=== PATIENT | male | born 1955 | race Caucasian/White ===

== ENCOUNTER → 2016-06-08 | Outpatient (CLI) | payer BC ==
[~2016-06-08] MED LIST: ACET-1138 PO; APIX1TAB3 PO; CLB200 PO; FLEC100T21 PO; HYG/25 PO; LISI40TA PO; METO100T14 PO; METO50TA7 PO; OMEG-54 PO; ONDA8TAB6 PO; OXYSR10 PO; PRVC/20 PO; RXC5 PO; SERT1TAB68 PO; SNK PO; [UNRECOGNIZED DRUG - OTHER] PO; lovaza PO
[2016-06-08 18:17] LABS: BLOOD UREA NITROGEN 15 mg/dl (7-18); BUN/CREATININE RATIO 15.1 (10-20); CALCIUM 8.9 mg/dl (8.5-10.1); CARBON DIOXIDE 27 mmol/L (21-32); CHLORIDE 106 mmol/L (98-107); GLUCOSE 127 mg/dl (70-99); POTASSIUM 3.6 mmol/L (3.5-5.1); SODIUM 142 mmol/L (136-145)
== END | disposition home or self-care (01) ==
LOC: C.LABPBG 15:19
PROVIDERS: ATTEND Internal Medicine Geriatric Medicine
DX: I10 Essential (primary) hypertension (principal)

== ENCOUNTER 2016-09-03 07:27 | Inpatient (IN) | payer BC ==
[~2016-09-03] VITALS: Ht 180.3 cm; Wt 126.2 kg
[2016-09-03] VITALS (9 sets, daily range): BP systolic 109–148; BP diastolic 64–76; PULSE 66–82; TEMP 36.2–37; O2SAT 92–99; Ht 180.3 cm; Wt 126.2 kg
[~2016-09-03 07:27] MED LIST changes: -HYG/25 PO; -METO50TA7 PO; -OMEG-54 PO; -ONDA8TAB6 PO
[2016-09-03] MEDS ORDERED: ONDANSETRON INJ 2 MG/ML 2 ML VIAL IV STA (07:48)
[2016-09-03] MEDS ORDERED: ONDANSETRON INJ 2 MG/ML 2 ML VIAL ONE (07:48)
[2016-09-03] MEDS ORDERED: MoRPHine SULFATE 10 MG/ML CARP/VIAL IV STA (07:48)
[2016-09-03] MEDS ORDERED: OMEG-54 PO (07:49)
[2016-09-03] MEDS ORDERED: HYG/25 PO (07:49)
[2016-09-03] MEDS ORDERED: METO50TA7 PO (07:49)
[2016-09-03] MEDS ORDERED: SODIUM CHLORIDE 0.9% 1000ML 1,000 ML IV STA (07:53)
[2016-09-03] MEDS ORDERED: MoRPHine SULFATE 4 MG/ML 1 ML CARP\\VIAL ONE ×3 (07:59→08:51)
[2016-09-03] MEDS ORDERED: MoRPHine SULFATE 2 MG/ML CARP ONE ×3 (07:59→08:51)
[2016-09-03] MEDS ORDERED: OPTIRAY 320 IV PRN (08:00)
[2016-09-03 08:02] LABS: BASO % 0.2 %; BASO ABS # 0.03 K/uL (0-0.2); COMPLETE YES; EOS % 0.6 %; HEMATOCRIT 44.4 % (42-52); IG% 0.2 %; LYMPH % 14.3 %; LYMPH ABS # 1.94 K/uL (1.2-3.4); MEAN CELL VOLUME 88.4 fL (80-100); MEAN CORPUSCULAR HEMOGLOBIN 31.9 pg (25-34); MEAN PLATELET VOLUME 9.9 fL (7.4-10.4); NEUT % 77.7 %; PLATELET COUNT 218 K/uL (130-400); RED BLOOD COUNT 5.02 M/uL (4.7-6.1); WHITE BLOOD COUNT 13.59 K/uL (4.8-10.8)
--- NOTE | 2016-09-03 08:08 | EMERGENCY ROOM VISIT NOTE ---
History First contact with patient: 07:37 Chief Complaint: ABDOMINAL PAIN Stated Complaint: SEVERE ABD. PAINS Nursing Triage Summary: "severe abd pain" slight discomfort last night worse through night. pt has a hx of sbo, n/v since 229 History of Present Illness The patient is a 61 year old male with history of small bowel obstruction who presents to the Emergency Room with complaints of severe abdominal pain. His abdomen started feeling uncomfortable around 11pm last night but he managed to get some sleep. Around 2:30am the pain was more severe that it woke him up and it has been getting progressively worse since then. It started on the left side of his abdomen and is now generalized. No radiation. He has associated sweating with the pain but no fevers or chills in the days leading up to this. He has associated nausea and vomiting and just vomited while in the ER. He thinks his last BM was yesterday. He has been having more loose stool in the last 2 weeks and is taking more Metamucil to help bulk it up. His abdomen is much more distended today than his usual. He has a history of recurrent small bowel obstruction most recently in June 2015 which resolved in the ER. He has no history of abdominal surgery and he is unsure what is the cause of small bowel obstruction. He had a colonoscopy in 2013 which showed terminal ileal ulcers however biopsies of these showed normal ileal mucosa only. No diverticulosis mentioned on colonoscopy report. Review of Systems See HPI for pertinent positives & negatives. A total of 10 systems reviewed and were otherwise negative. Past Medical/Surgical History Medical Problems: (1) Depression (2) Dyslipidemia (3) Hypertension (4) Leg edema (5) Paroxysmal atrial fibrillation (6) Partial small bowel obstruction (7) PVCs (premature ventricular contractions) (8) Severe obstructive sleep apnea Surgical Problems: (1) History of repair of left rotator cuff (2) History of repair of right rotator cuff (3) History of total left knee replacement Social History Smoking Status: Never Smoker Drug Use: none Marital Status: Housing Status: lives with family Occupation Status: retired Current/Historical Medications Scheduled Acetaminophen (Tylenol Extra Strength), 1,000 MG PO Q8H Apixaban (Eliquis), 5 MG PO BID Chlorthalidone (Hygroton), 25 MG PO DAILY Flecainide (Tambocor), 100 MG PO BID Lisinopril (Zestril), 40 MG PO QPM Wtgni-3-Uuex Ethyl Esters (Oataw-8-Dxuv Ethyl Esters 1 gm), 1 CAP PO DAILY Sertraline Hcl (Zoloft), 100 MG PO HS Allergies Coded Allergies: No Known Allergies (Verified , NONE, 09/03/16) Physical Exam Vital Signs Date Time Temp Pulse Resp B/P (MAP) Pulse Ox O2 Delivery O2 Flow Rate FiO2 09/03/16 09:41 76 15 142/73 99 Nasal Cannula 2.0 09/03/16 09:20 99 Nasal Cannula 2.0 09/03/16 08:51 99 Nasal Cannula 3.0 09/03/16 08:50 95 Room Air 09/03/16 08:36 80 17 151/76 92 Room Air 09/03/16 07:30 36.5 88 24 136/84 97 Room Air Pain Rating (0-10): 10 Physical Exam VITAL SIGNS: were reviewed as above GENERAL: moderate distress from abdominal pain and distension SKIN: Warm dry and pink, no rashes, no lesions HEAD: Normocephalic and atraumatic EYES: extraocular muscles intact, pupils equal OROPHARYNX: non erythematous, clear and dry NECK: Supple, large neck, no adenopathy or meningismus LUNGS: clear to auscultation, no accessory muscle use HEART: Regular rate and rhythm, heart sounds 1+2, no murmurs ABDOMEN: Soft, generalized tenderness all over abdomen, no rebound or guarding, abdominal distended, bowel sounds increased BACK: no CVA tenderness EXTREMITIES: Warm and well perfused, no calf tenderness/swelling, no pedal edema. NEUROLOGICALLY: Awake alert and oriented without overt focal deficit. There is no nystagmus. There is no facial droop. Speech is clear. Vision is grossly normal. MUSCULOSKELETAL: Good muscle tone. No evidence of trauma Medical Decision & Procedures ER Provider Diagnostic Interpretation: CT ABD/PELVIS IV CONTRAST ONLY CLINICAL HISTORY: Severe left-sided abdominal pain. History of small bowel obstruction. COMPARISON STUDY: 07/23/2015 TECHNIQUE: Following the IV administration of 120 mL of Optiray-320, CT scan of the abdomen and pelvis was performed from the lung bases to the proximal femurs. Images are reviewed in the axial, sagittal, and coronal planes. IV contrast was administered without complication. CT DOSE: 1256.37 mGy.cm FINDINGS: Lower chest: There are mild basilar atelectatic changes present. Liver: The contrast-enhanced liver is normal in size, contour, and attenuation. There is no intrahepatic biliary ductal dilatation. The hepatic veins and portal veins are patent. Gallbladder: Unremarkable. Spleen: Normal in size and attenuation. Pancreas: Unremarkable. Adrenal glands: Unremarkable. Kidneys: There is symmetric renal cortical enhancement. The kidneys are normal in size without hydronephrosis. Bowel: There is an indwelling nasogastric tube present. The appendix appears normal. There are dilated proximal and mid small bowel loops. The distal ileum is of normal caliber. The findings are indicative of a small bowel obstruction. There is a right lower quadrant transition. There is no acute diverticulitis. Peritoneum: There is no intraperitoneal free air or abdominal ascites. There are small fat-containing inguinal hernias. Vasculature: The abdominal aorta is normal in course and caliber. Adenopathy: None. Pelvic viscera: The bladder, and pelvic viscera are unremarkable. Skeletal structures: No destructive osseous lesions are seen. IMPRESSION: 1. Small bowel obstruction with a right lower quadrant transition. 2. No evidence of pneumatosis. No evidence of portal venous gas. No evidence of free air. Electronically signed by: Lars Jose M.D. 09/03/2016 8:45 AM Dictated Date/Time: 09/03/2016 8:39 AM Laboratory Results Test 09/03/16 07:49 09/03/16 07:55 RDW Standard Deviation 43.4 fL (36.4-46.3) RDW Coefficient of Variation 13.4 % (11.5-14.5) White Blood Count 13.59 K/uL (4.8-10.8) Red Blood Count 5.02 M/uL (4.7-6.1) Hemoglobin 16.0 g/dL (14.0-18.0) Hematocrit 44.4 % (42-52) Mean Corpuscular Volume 88.4 fL (80-100) Mean Corpuscular Hemoglobin 31.9 pg (25-34) Mean Corpuscular Hemoglobin Concent 36.0 g/dl (32-36) Platelet Count 218 K/uL (130-400) Mean Platelet Volume 9.9 fL (7.4-10.4) Neutrophils (%) (Auto) 77.7 % Lymphocytes (%) (Auto) 14.3 % Monocytes (%) (Auto) 7.0 % Eosinophils (%) (Auto) 0.6 % Basophils (%) (Auto) 0.2 % Neutrophils # (Auto) 10.56 K/uL (1.4-6.5) Lymphocytes # (Auto) 1.94 K/uL (1.2-3.4) Monocytes # (Auto) 0.95 K/uL (0.11-0.59) Eosinophils # (Auto) 0.08 K/uL (0-0.5) Basophils # (Auto) 0.03 K/uL (0-0.2) Immature Granulocyte % (Auto) 0.2 % Immature Granulocyte # (Auto) 0.03 K/uL (0.00-0.02) Est Creatinine Clear Calc Drug Dose 89.0 ml/min Total Bilirubin 0.4 mg/dl (0.2-1) Aspartate Amino Transf (AST/SGOT) 18 U/L (15-37) Alanine Aminotransferase (ALT/SGPT) 23 U/L (12-78) Alkaline Phosphatase 58 U/L (45-117) Total Protein 7.9 gm/dl (6.4-8.2) Albumin 4.1 gm/dl (3.4-5.0) Globulin 3.8 gm/dl (2.5-4.0) Albumin/Globulin Ratio 1.1 (0.9-2) Lipase 238 U/L (73-393) Bedside Hemoglobin 16.3 g/dl (14.0-18.0) Bedside Hematocrit 48 % (42-52) Bedside Sodium 137 mEq/L (135-144) Bedside Potassium 4.4 mEq/L (3.3-5.0) Bedside Chloride 99 mEq/L (101-112) Bedside Total CO2 26 mEq/l (24-31) Bedside Blood Urea Nitrogen 25 mg/dl (7-18) Bedside Creatinine 1.1 mg/dl (0.6-1.3) Bedside Glucose (other) 125 mg/dl (70-99) Bedside Ionized Calcium (Temitope) 1.19 mmol/l (1.12-1.32) Medications Administered Medications (Trade) Dose Ordered Sig/Chante Route Start Time Stop Time Status Last Admin Dose Admin Ondansetron HCl (Zofran Inj) 4 mg NOW STAT IV 09/03/16 07:48 09/03/16 07:50 DC 09/03/16 08:01 4 MG Sodium Chloride 1,000 ml @ 999 mls/hr Q1H1M STAT IV 09/03/16 07:53 09/03/16 08:53 DC 09/03/16 08:00 999 MLS/HR Morphine Sulfate (MoRPHine SULFATE INJ) 2 mg STK-MED ONCE .ROUTE 09/03/16 07:59 09/03/16 08:00 DC 09/03/16 08:02 2 MG Morphine Sulfate (MoRPHine SULFATE INJ) 4 mg STK-MED ONCE .ROUTE 09/03/16 07:59 09/03/16 08:00 DC 09/03/16 08:02 4 MG Morphine Sulfate (MoRPHine SULFATE INJ) 2 mg STK-MED ONCE .ROUTE 09/03/16 08:51 09/03/16 08:52 DC 09/03/16 08:54 2 MG Morphine Sulfate (MoRPHine SULFATE INJ) 4 mg STK-MED ONCE .ROUTE 09/03/16 08:51 09/03/16 08:52 DC 09/03/16 08:53 4 MG Lorazepam (Ativan Inj) 2 mg STK-MED ONCE .ROUTE 09/03/16 09:35 09/03/16 09:36 DC 09/03/16 09:39 0.5 MG ED Course 7:45am Complete history and physical taken by myself 7:55am Discussed case with Dr Rider 8:00am Dr Rider separately took history and physical 9:05am Discussed with Dr Olvera who will come to review patient 9:25am Discussed with Dr Morales who accepted the patient to evaluate for admission Medical Decision Prior records/ancillary studies reviewed. Triage Nursing notes reviewed. Additional history obtained from Patient and his . The patient's history was concerning for abdominal pain. Differential diagnosis: Etiologies such as appendicitis, diverticulitis, PUD, biliary pathology, UTI, pancreatitis, obstruction, mesenteric ischemia, aortic pathology, infections, inflammatory bowel disease, renal colic, as well as others were entertained. Physical examination findings: As above. ER treatment provided: NSS, Zofran and morphine On reassessment the patient felt better. Diagnostics interpreted by me: The labs revealed elevated WBC. Imaging studies: CT abdomen/pelvis as above revealed small bowel obstruction without perforation Consultation: A consultation was placed with the Surgery. The case was discussed and diagnostics were reviewed. The patient was evaluated in the ER for further treatment and advised admission under hospitalist. A consultation was placed with the [facility] hospitalist. The case was discussed and diagnostics were reviewed. The patient was evaluated in the ER for further treatment. Diagnosis of small bowel obstruction. By the evaluation outlined above emergent etiologies such as appendicitis, diverticulitis, PUD, biliary pathology, UTI, pancreatitis, mesenteric ischemia, aortic pathology, infections, inflammatory bowel disease, renal colic, as well as others were deemed relatively unlikely. The patient informed about the findings as listed above. All questions were answered and they were pleased with the treatment. Consults Time Called: 8:58am Consulting Physician: Surgery (Dr Olvera) Returned Call: 9:05am Additional Consults: Time Called: 9:06am Consulted Physician: [facility] Hospitalist (Dr Morales) Returned Call: 9:25am Impression Primary Impression: Small bowel obstruction Departure Information Dispostion Being Evaluated By Hospitalist Condition FAIR Referrals Maverick Khan M.D. (PCP) Patient Instructions My [facility] Resident Tracking Resident Involvement: Resident Care Provided Care Provided: Adult ED
[2016-09-03 08:15] LABS: PROTHROMBIN TIME (PATIENT) 10.4 SECONDS (9.0-12.0)
[2016-09-03 08:19] LABS: CALCIUM 9.3 mg/dl (8.5-10.1)
[2016-09-03 08:20] LABS: BUN/CREATININE RATIO 18.8 (10-20); CREATININE 1.2 mg/dl (0.60-1.40); POTASSIUM 4.4 mmol/L (3.5-5.1)
[2016-09-03 08:23] LABS: ALB/GLOB RATIO 1.1 (0.9-2)
--- NOTE | 2016-09-03 08:46 | DIAGNOSTIC IMAGING REPORT ---
CT ABD/PELVIS IV CONTRAST ONLY CLINICAL HISTORY: Severe left-sided abdominal pain. History of small bowel obstruction. COMPARISON STUDY: 07/23/2015 TECHNIQUE: Following the IV administration of 120 mL of Optiray-320, CT scan of the abdomen and pelvis was performed from the lung bases to the proximal femurs. Images are reviewed in the axial, sagittal, and coronal planes. IV contrast was administered without complication. CT DOSE: 1256.37 mGy.cm FINDINGS: Lower chest: There are mild basilar atelectatic changes present. Liver: The contrast-enhanced liver is normal in size, contour, and attenuation. There is no intrahepatic biliary ductal dilatation. The hepatic veins and portal veins are patent. Gallbladder: Unremarkable. Spleen: Normal in size and attenuation. Pancreas: Unremarkable. Adrenal glands: Unremarkable. Kidneys: There is symmetric renal cortical enhancement. The kidneys are normal in size without hydronephrosis. Bowel: There is an indwelling nasogastric tube present. The appendix appears normal. There are dilated proximal and mid small bowel loops. The distal ileum is of normal caliber. The findings are indicative of a small bowel obstruction. There is a right lower quadrant transition. There is no acute diverticulitis. Peritoneum: There is no intraperitoneal free air or abdominal ascites. There are small fat-containing inguinal hernias. Vasculature: The abdominal aorta is normal in course and caliber. Adenopathy: None. Pelvic viscera: The bladder, and pelvic viscera are unremarkable. Skeletal structures: No destructive osseous lesions are seen. IMPRESSION: 1. Small bowel obstruction with a right lower quadrant transition. 2. No evidence of pneumatosis. No evidence of portal venous gas. No evidence of free air. Electronically signed by: Lars Jose M.D. 09/03/2016 8:45 AM Dictated Date/Time: 09/03/2016 8:39 AM
[2016-09-03] MEDS ORDERED: MoRPHine SULFATE 10 MG/ML CARP/VIAL IM STA (08:49)
[2016-09-03] MEDS ORDERED: LORAZEPAM 2 MG/ML 1 ML VIAL IV STA (09:30)
[2016-09-03] MEDS ORDERED: LORAZEPAM 2 MG/ML 1 ML VIAL ONE (09:35)
[2016-09-03] MEDS ORDERED: MoRPHine SULFATE 2 MG/ML CARP IV PRN (09:45)
[2016-09-03] MEDS ORDERED: ONDANSETRON INJ 2 MG/ML 2 ML VIAL IV PRN (09:45)
[2016-09-03] MEDS ORDERED: ACETAMINOPHEN IV 100 ML IV PRN (09:45)
[2016-09-03] MEDS ORDERED: PIPERACILLIN/TAZOBACTAM 4.5 GM/100ML D5W IV STA (09:48)
[2016-09-03] MEDS ORDERED: PIPERACILL/TAZOBAC IV 4.5 GM in DEXTROSE 5% 100ML IV STA (09:48)
[2016-09-03] MEDS ORDERED: LORAZEPAM 2 MG/ML 1 ML VIAL IV PRN (10:00)
--- NOTE | 2016-09-03 10:13 | DIAGNOSTIC IMAGING REPORT ---
CHEST ONE VIEW PORTABLE CLINICAL HISTORY: Hypoxia. Small bowel obstruction. COMPARISON STUDY: 11/25/2015 FINDINGS: The heart is mildly enlarged. There is no failure. There is no focal pulmonary consolidation. There are no pleural effusions.[ A nasogastric tube is visualized. IMPRESSION: Mild cardiomegaly. No acute findings. Electronically signed by: Lars Jose M.D. 09/03/2016 10:11 AM Dictated Date/Time: 09/03/2016 10:10 AM
[2016-09-03] MEDS ORDERED: PIPERACILL/TAZOBAC CONSULT ACTIVE PRN (10:30)
--- NOTE | 2016-09-03 10:45 | History and Physical ---
History & Physical Date & Time of Service: Sep 03, 2016 at 10:31 Chief Complaint: Severe Abd. Pains Primary Care Physician: Maverick Khan M.D. History of Present Illness Source: patient, spouse The patient is a 61-year-old male with history of previous small bowel obstruction, who presents emergency room with initial development of abdominal pain before going to bed last night. He woke up during the middle night around 2:30 with symptoms, but was able to go back to bed. He woke up this morning with severe pain, and presents emergency department for assessment. CT of the abdomen and pelvis suggests small bowel obstruction, and he is referred for evaluation for admission. The patient reports no change in eating or drinking habits, he has not had any recent travel or any sick exposures. Past Medical/Surgical History Medical Problems: (1) Depression Status: Chronic (2) Dyslipidemia Status: Chronic (3) Hypertension Status: Chronic (4) Leg edema Status: Resolved (5) Paroxysmal atrial fibrillation Status: Chronic (6) Partial small bowel obstruction Status: Resolved (7) PVCs (premature ventricular contractions) Status: Chronic (8) Severe obstructive sleep apnea Status: Chronic Surgical Problems: (1) History of total left knee replacement Status: Chronic Social History Smoking Status: Former Smoker Smokeless Tobacco Use: No Alcohol Use: none Drug Use: none Marital Status: Housing status: lives with family Occupational Status: retired Immunizations History of Influenza Vaccine: No History of Tetanus Vaccine?: YES, 2007. History of Pneumococcal: No History of Hepatitis B Vaccine: Yes Multi-Drug Resistant Organisms History of MDRO: No Allergies Coded Allergies: No Known Allergies (Verified , NONE, 09/03/16) Home Medications Scheduled Acetaminophen (Tylenol Extra Strength), 1,000 MG PO Q8H Apixaban (Eliquis), 5 MG PO BID Chlorthalidone (Hygroton), 25 MG PO DAILY Flecainide (Tambocor), 100 MG PO BID Lisinopril (Zestril), 40 MG PO QPM Bibwu-2-Nugy Ethyl Esters (Degcn-8-Bptv Ethyl Esters 1 gm), 1 CAP PO DAILY Sertraline Hcl (Zoloft), 100 MG PO HS Review of Systems The patient denies chest pain, palpitations, shortness of breath, cough, lower extremity swelling, sore throat, fevers, chills, sweats, blood in urine or stool, dysuria, urinary frequency or urgency, lightheadedness, dizziness, headache, memory loss, rash, abnormal bruising or bleeding, imbalance, focal or generalized weakness, numbness or tingling in arms or legs, arthralgias or myalgias, back or neck pain, night sweats, or allergy symptoms. The review of systems is otherwise negative other than for that already noted above, and at least 10 systems have been reviewed. Physical Exam Vital Signs Date Time Temp Pulse Resp B/P (MAP) Pulse Ox O2 Delivery O2 Flow Rate FiO2 09/03/16 10:17 78 15 132/75 99 Nasal Cannula 3.0 09/03/16 10:17 76 09/03/16 09:41 76 15 142/73 99 Nasal Cannula 2.0 09/03/16 09:20 99 Nasal Cannula 2.0 09/03/16 08:51 99 Nasal Cannula 3.0 09/03/16 08:50 95 Room Air 09/03/16 08:36 80 17 151/76 92 Room Air 09/03/16 07:30 36.5 88 24 136/84 97 Room Air The patient is awake, well-developed and adequately nourished, alert and oriented 3, normocephalic and atraumatic, lying in bed and in mild to moderate distress during times of paroxysmal abdominal pain. HEENT--PERRL, EOMI, mucous membranes and oropharynx dry. Neck--supple, no JVD or bruits, thyroid normal, trachea midline, no adenopathy. Heart--normal S1 and S2, no extra beats, no murmurs, rubs or gallops. Lungs--clear bilaterally but diminished throughout, no respiratory distress, no accessory muscle use. Abdomen--decreased bowel sounds, generalized mild tenderness, mildly distended. Extremities--no cyanosis, clubbing or edema. There are good distal pulses b/l. Dermatologic--normal skin turgor, normal color, warm and dry, no abnormal lymph nodes, no rash. Neurologic--cranial nerves II through XII grossly intact. Rheumatologic--normal range of motion, nontender, muscles and joints. Psychiatric--normal affect. Diagnostics Laboratory Results Results Past 24 Hours Test 09/03/16 07:49 Range/Units White Blood Count 13.59 4.8-10.8 K/uL Red Blood Count 5.02 4.7-6.1 M/uL Hemoglobin 16.0 14.0-18.0 g/dL Hematocrit 44.4 42-52 % Mean Corpuscular Volume 88.4 80-100 fL Mean Corpuscular Hemoglobin 31.9 25-34 pg Mean Corpuscular Hemoglobin Concent 36.0 32-36 g/dl Platelet Count 218 130-400 K/uL Mean Platelet Volume 9.9 7.4-10.4 fL Neutrophils (%) (Auto) 77.7 % Lymphocytes (%) (Auto) 14.3 % Monocytes (%) (Auto) 7.0 % Eosinophils (%) (Auto) 0.6 % Basophils (%) (Auto) 0.2 % Neutrophils # (Auto) 10.56 1.4-6.5 K/uL Lymphocytes # (Auto) 1.94 1.2-3.4 K/uL Monocytes # (Auto) 0.95 0.11-0.59 K/uL Eosinophils # (Auto) 0.08 0-0.5 K/uL Basophils # (Auto) 0.03 0-0.2 K/uL RDW Standard Deviation 43.4 36.4-46.3 fL RDW Coefficient of Variation 13.4 11.5-14.5 % Immature Granulocyte % (Auto) 0.2 % Immature Granulocyte # (Auto) 0.03 0.00-0.02 K/uL Prothrombin Time 10.4 9.0-12.0 SECONDS Prothromb Time International Ratio 1.0 0.9-1.1 Activated Partial Thromboplast Time 26.3 21.0-31.0 SECONDS Partial Thromboplastin Ratio 1.0 Sodium Level 137 136-145 mmol/L Potassium Level 4.4 3.5-5.1 mmol/L Chloride Level 101 98-107 mmol/L Carbon Dioxide Level 26 21-32 mmol/L Anion Gap 10.0 3-11 mmol/L Blood Urea Nitrogen 23 7-18 mg/dl Creatinine 1.20 0.60-1.40 mg/dl Est Creatinine Clear Calc Drug Dose 89.0 ml/min Estimated GFR () 75.7 Estimated GFR (Non- 65.3 BUN/Creatinine Ratio 18.8 10-20 Random Glucose 120 70-99 mg/dl Calcium Level 9.3 8.5-10.1 mg/dl Total Bilirubin 0.4 0.2-1 mg/dl Aspartate Amino Transf (AST/SGOT) 18 15-37 U/L Alanine Aminotransferase (ALT/SGPT) 23 12-78 U/L Alkaline Phosphatase 58 45-117 U/L Total Protein 7.9 6.4-8.2 gm/dl Albumin 4.1 3.4-5.0 gm/dl Globulin 3.8 2.5-4.0 gm/dl Albumin/Globulin Ratio 1.1 0.9-2 Lipase 238 73-393 U/L Diagnostic Radiology Patient Name: ALEXIS ARCE Unit Number: [id number] Dictated: 09/03/16838 Transcribed: 09/03/16838 ARG Printed Date/Time: [~ rep prt dt]/[~ rep prt tm] [~ rep ct labl] - [~ rep ct ivnm] [facility] Radiology Department [place] [id number] Dictated: 09/03/16838 Transcribed: 09/03/16838 ARG Printed Date/Time: [~ rep prt dt]/[~ rep prt tm] [~ rep ct labl] - [~ rep ct ivnm] [~ rep ct add3]] CT ABD/PELVIS IV CONTRAST ONLY CLINICAL HISTORY: Severe left-sided abdominal pain. History of small bowel obstruction. COMPARISON STUDY: 07/23/2015 TECHNIQUE: Following the IV administration of 120 mL of Optiray-320, CT scan of the abdomen and pelvis was performed from the lung bases to the proximal femurs. Images are reviewed in the axial, sagittal, and coronal planes. IV contrast was administered without complication. CT DOSE: 1256.37 mGy.cm FINDINGS: Lower chest: There are mild basilar atelectatic changes present. Liver: The contrast-enhanced liver is normal in size, contour, and attenuation. There is no intrahepatic biliary ductal dilatation. The hepatic veins and portal veins are patent. Gallbladder: Unremarkable. Spleen: Normal in size and attenuation. Pancreas: Unremarkable. Adrenal glands: Unremarkable. Kidneys: There is symmetric renal cortical enhancement. The kidneys are normal in size without hydronephrosis. Bowel: There is an indwelling nasogastric tube present. The appendix appears normal. There are dilated proximal and mid small bowel loops. The distal ileum is of normal caliber. The findings are indicative of a small bowel obstruction. There is a right lower quadrant transition. There is no acute diverticulitis. Peritoneum: There is no intraperitoneal free air or abdominal ascites. There are small fat-containing inguinal hernias. Vasculature: The abdominal aorta is normal in course and caliber. Adenopathy: None. Pelvic viscera: The bladder, and pelvic viscera are unremarkable. Skeletal structures: No destructive osseous lesions are seen. IMPRESSION: 1. Small bowel obstruction with a right lower quadrant transition. 2. No evidence of pneumatosis. No evidence of portal venous gas. No evidence of free air. Electronically signed by: Lars Jose M.D. 09/03/2016 8:45 AM Dictated Date/Time: 09/03/2016 8:39 AM The status of this report is Signed. Draft = Not yet reviewed or approved by Radiologist. Signed = Reviewed and approved by Radiologist. <AttendingPhy></AttendingPhy> <FamilyPhy>Maverick Khan M.D.</FamilyPhy> < PrimaryPhy>Maverick Khan M.D.</PrimaryPhy> <UnitNumber>[id number]</UnitNumber > <VisitNumber>[id number]</VisitNumber> <PatientName>ALEXIS ARCE Sunita</ PatientName> <DateOfBirth>1955</DateOfBirth> <Location>[facility]</Location> < ServiceDate>09/03/16</ServiceDate> <MNE>ESINDI</MNE> <OrderingPhy>Yuval Galloway MD</OrderingPhy> <OrderingPhyMNE>f rep ord dr stevens</OrderingPhyMNE> < DictatingPhyMNE>f rep dict dr stevens</DictatingPhyMNE> <CCListMNE>f rep ct hilda</ CCListMNE> <AdmittingPhyMNE>f pt admit dr stevens</AdmittingPhyMNE> <AttendingPhyMNE >f pt attend dr stevens</AttendingPhyMNE> <ConsultingPhyMNE>f pt consult dr stevens</ConsultingPhyMNE> <FamilyPhyMNE>f pt fam dr stevens</FamilyPhyMNE> <OtherPhyMNE>f pt other dr stevens</OtherPhyMNE> < PrimaryPhyMNE>f pt prim care dr stevens</PrimaryPhyMNE> <ReferringPhyMNE>f pt referring dr stevens</ReferringPhyMNE> Patient Name: ALEXIS ARCE Unit Number: [id number] Dictated: 09/03/16 101 Transcribed: 09/03/16 101 ARG Printed Date/Time: [~ rep prt dt]/[~ rep prt tm] [~ rep ct labl] - [~ rep ct ivnm] [facility] Radiology Department [place], [place] [id number] Dictated: 09/03/16 1010 Transcribed: 09/03/16 1010 ARG Printed Date/Time: [~ rep prt dt]/[~ rep prt tm] [~ rep ct labl] - [~ rep ct ivnm] CHEST ONE VIEW PORTABLE CLINICAL HISTORY: Hypoxia. Small bowel obstruction. COMPARISON STUDY: 11/25/2015 FINDINGS: The heart is mildly enlarged. There is no failure. There is no focal pulmonary consolidation. There are no pleural effusions.[ A nasogastric tube is visualized. IMPRESSION: Mild cardiomegaly. No acute findings. Electronically signed by: Lars Jose M.D. 09/03/2016 10:11 AM Dictated Date/Time: 09/03/2016 10:10 AM The status of this report is Signed. Draft = Not yet reviewed or approved by Radiologist. Signed = Reviewed and approved by Radiologist. <AttendingPhy></AttendingPhy> <FamilyPhy>Maverick Khan M.D.</FamilyPhy> < PrimaryPhy>Maverick Khan M.D.</PrimaryPhy> <UnitNumber>[id number]</UnitNumber > <VisitNumber>[id number]</VisitNumber> <PatientName>ALEXIS ARCE</ PatientName> <DateOfBirth>1955</DateOfBirth> <Location>[facility]</Location> < ServiceDate>09/03/16</ServiceDate> <MNE>ESINDI</MNE> <OrderingPhy>Pasquariello, Olman D M.D.</OrderingPhy> <OrderingPhyMNE>f rep ord dr stevens</OrderingPhyMNE> < DictatingPhyMNE>f rep dict dr stevens</DictatingPhyMNE> <CCListMNE>f rep ct hilda</ CCListMNE> <AdmittingPhyMNE>f pt admit dr stevens</AdmittingPhyMNE> <AttendingPhyMNE >f pt attend dr stevens</AttendingPhyMNE> <ConsultingPhyMNE>f pt consult dr stevens</ConsultingPhyMNE> <FamilyPhyMNE>f pt fam dr stevens</FamilyPhyMNE> <OtherPhyMNE>f pt other dr stevens</OtherPhyMNE> < PrimaryPhyMNE>f pt prim care dr stevens</PrimaryPhyMNE> <ReferringPhyMNE>f pt referring dr stevens</ReferringPhyMNE> EKG EKG is ordered and pending. Impression Assessment and Plan Recurrent small bowel obstruction--the patient be admitted to the telemetry unit due to need for IV medications. He'll be kept nothing by mouth. Start Zosyn 4.5 g IV now then 3.75 mg IV every 8 hours, Zofran 4 mg IV every 6 hours when necessary, ranitidine 50 mg IV every 8 hours, acetaminophen 650 mg IV every 6 hours when necessary, and morphine sulfate 2-4 mg IV every 2 hours when necessary. We'll consult general surgery. Paroxysmal atrial fibrillation/hypertension--we will hold flecainide 100 mg by mouth twice a day and Eliquis 5 mg by mouth twice a day. We'll consult cardiology for recommendations regarding IV antiarrhythmics and IV heparin. Hold chlorthalidone 25 mg by mouth daily and lisinopril 40 mg by mouth every afternoon. Depression/anxiety--hold sertraline 100 mg by mouth at bedtime. Place on lorazepam 0.5 mg IV every 4 hours when necessary anxiety and abdominal spasm. Level of Care Telemetry Advanced Directives Existing Advance Directive: No Existing Living Will: Yes Existing Power of Water Sander: Yes Resuscitation Status FULL RESUSCITATION VTE Prophylaxis VTE Risk Assessment Done? Y/N: Yes Risk Level: Moderate Given or contraindicated: Other Anticoagulation (IV heparin.), SCD's Social Service Consult None Apply
[2016-09-03] MEDS ORDERED: LORAZEPAM INJ 0.5 MG in SYRINGE 0.75 ML IV PRN (11:45)
[2016-09-03] MEDS: MoRPHine SULFATE 4 MG/ML 1 ML CARP\\VIAL IV PRN ×2 (12:05→23:45)
[2016-09-03] MEDS: RANITIDINE IV 50 MG in DEXTROSE 5% 100ML 100 ML IV SCH ×2 (12:06→19:57)
[2016-09-03] MEDS: NSS + 20MEQ KCL 1000ML 1,000 ML IV SCH ×2 (12:06→22:12)
[2016-09-03 12:38] LABS: ISTAT CREATININE 1.1 mg/dl (0.6-1.3); ISTAT HEMOGLOBIN 16.3 g/dl (14.0-18.0); ISTAT IONIZED CALCIUM 1.19 mmol/l (1.12-1.32)
--- NOTE | 2016-09-03 14:16 | EMERGENCY ROOM VISIT NOTE ---
ED Visit Note First contact with patient: 07:37 Resident Physician Supervision Note: I interviewed and examined the patient. Discussed with Dr. Galloway and agree with findings and plan as documented in the note. Any exceptions or clarifications are listed here: [None] Documented By: Daniel Rider
--- NOTE | 2016-09-03 14:33 | SURGICAL CONSULTATION ---
DATE OF ADMISSION: 09/03/2016 Seen in consultation for a bowel obstruction. SUMMARY: This is a 61-year-old gentleman who last evening started experiencing some abdominal pain in the periumbilical area. It happened while he was watching a baseball game from [place], did not think much about it because he had had a similar problem approximately a year ago, went to bed and tried a cat nap and eventually became more significant, then was sent down to the Emergency Room, was evaluated by CT scan which found what appeared to be small-bowel obstruction with transition point in the right lower quadrant. Of note, he had a similar episode approximately a year ago that resolved without being admitted. He states he has had colonoscopy approximately [address] Whitfield that was pretty much normal. He has a past medical history interesting in a sense that he has had a longstanding history of some loose stools but lately has been more formed and harder to move through. He was instructed by the primary care physician to supplement his diet with some Metamucil. Also approximately 20 years ago he was told that he had some gallbladder problems and does have some fatty food intolerances. He also stated that he had similar pain about 5 years ago was after he ate a couple bags of peanuts and the pain was most left-sided. Similarly this time, he stated that the pain started in the left side of his abdomen. His last bowel movement was approximately a day ago. PAST MEDICAL HISTORY: Unremarkable other than having multiple orthopedic type of injuries including a total knee replacement approximately a year ago. Other than that he enjoys good health. He still works heavily and works outside on a routine basis. He has had some history of depression, dyslipidemia, hypertension, some leg edema, PAF, PVCs and orthopedic injuries as stated. SOCIAL HISTORY: He was never a smoker. He is . He lives with his family. He is retired. PRESENT MEDICATIONS: Include Tylenol, Eliquis 5 mg b.i.d., Tambocor lisinopril, omega-3 and Zoloft. ALLERGIES: He has no known allergies. REVIEW OF SYSTEMS: Pretty much unremarkable. Denies any shortness of breath, any chest pain, any GI or symptoms other than what is stated above. No neurological or neurovascular problems. PHYSICAL EXAMINATION: GENERAL: As I see him today, Pawel is resting comfortably. He has an NG tube in place. His BMI is 39. HEAD: Normocephalic. EYES: PERRLA. The sclerae are nonicteric. NECK: There is no cervical lymphadenopathy. HEART AND LUNGS: Clear. ABDOMEN: Obese. He has generalized guarding, but no localized tenderness, guarding his bilateral lower quadrant periumbilical area. EXTREMITIES: Grossly normal. There is no edema. VITAL SIGNS: Showed a temperature of 36.5, pulse 82, respirations 18, blood pressure 136/75. O2 sats 97% on 3 liters. The NG tube is draining minimal amount. LABORATORY: WBCs are 1359 with a significant left shift. His BUN is 23, creatinine 1.20. Liver function tests are normal. ASSESSMENT AND PLAN: I suspect that the primary problem of Pawel even though the CAT scan does not show any acute diverticulitis may be repeat bouts of diverticular problem that may have had some adherence to the small bowel in that area. I doubt that any primary small bowel pathology, he had a similar problem a year ago and if it had been a small bowel pathology the most likely cause in this gentleman without any previous surgery may have been a malignancy and certainly would pronounced more since that time. At this time, I would continue NG tube placement. I would certainly continue him on broad-spectrum antibiotics and reevaluate him as he does. I will review the CAT scan tomorrow with the radiologist. But nothing surgical is needed at this time. Regarding his gallbladder, I think it is academic at this time and we get an ultrasound to document if there is indeed some pathology but certainly does not seem like it is the acute problem at this time, but it may explain some of the loose stools that he has had intermittently in the past. ABHINAV
[2016-09-03] MEDS: PIPERACILL/TAZOBAC IV 4.5 GM in DEXTROSE 5% 100ML 100 ML IV SCH ×2 (16:20→23:44)
--- NOTE | 2016-09-03 18:50 | CARDIOLOGY CONSULTATION ---
DATE OF CONSULTATION: 09/03/2016 REFERRING PHYSICIAN: Dr. Olman Woods. CHIEF COMPLAINT: Atrial fibrillation. HISTORY OF PRESENT ILLNESS: Mr. Pawel Charles is an 61-year-old gentleman with a history of frequent PVCs and atrial fibrillation who was admitted to [facility] with a small bowel obstruction. The patient noted that over the past 12 hours he has developed progressively worsening abdominal discomfort and some dry heaves. The patient has had symptoms of small bowel obstruction in the past. He recognized these symptoms and presented to the hospital for an evaluation. Imaging studies and examination do suggest a small bowel obstruction and he is currently being decompressed with NG suction. As the patient will no longer be able to take oral medications or food until the small bowel obstruction is relieved we were consulted in order to assist with management of his medications. In general, the patient is an active individual who is accustomed to routine activity. He can perform his activity without limitation. He denies significant exertional chest pains, but does have a mild element of exertional dyspnea. The patient was evaluated for this exertional dyspnea with stress echocardiography performed in June of this year. The patient's symptoms have been stable since that time. The patient is rarely aware of any palpitations. He denies significant dizziness or lightheadedness. He has not recently suffered a syncopal episode. At the time of his interview, the patient claims he is feeling somewhat better. He still has an element of abdominal distention and discomfort, but this is improved with NG suction. PAST MEDICAL HISTORY: Significant for 1. Atrial fibrillation discovered on Holter monitoring. 2. Frequent PVCs, improved with flecainide therapy. 3. History of bradycardia on metoprolol. 4. Depression. 5. Hyperlipidemia. 6. Obstructive sleep apnea, severe, currently on CPAP therapy 7. Peripheral neuropathy. 8. Spinal stenosis. 9. History of small bowel obstruction, treated with decompression. PAST SURGICAL HISTORY: Significant for foot, knee, and shoulder surgery as well as tonsillectomy. OUTPATIENT MEDICATIONS: Include chlorthalidone, Eliquis, flecainide, sertraline and lisinopril. MEDICAL ALLERGIES: No known medical allergies. FAMILY HISTORY: Not consistent with premature coronary disease. 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 He has a remote history of tobacco abuse, currently a nonsmoker. He does not endorse alcohol abuse. REVIEW OF SYSTEMS: A complete review of systems was performed and the pertinent positives are noted in the history of present illness, the remainder being negative. The patient denies significant swelling in his lower extremities since he started diuretic therapy. He did have significant myalgias which may have been related to statin therapy. He stopped Pravastatin recently and has noted an improvement. PHYSICAL EXAMINATION: GENERAL: The patient does not appear to be in acute distress. He is a pleasant individual who is alert and oriented. His mood and affect appeared normal and he answered all questions appropriately. VITAL SIGNS: Include blood pressure 146/67 with a pulse of 66. NEUROLOGIC: Revealed cranial nerves to be intact. HEENT: Sclerae are anicteric. His pupils are equal, reactive to light and accommodation. Extraocular movements were intact. Palpation of submandibular region did not reveal any significant lymphadenopathy. NECK: The carotids are palpable bilaterally. I do not appreciate any bruits on auscultation. There is no evidence of jugular venous distention. Thyroid is not enlarged. LUNGS: Auscultation of his lungs revealed them to be clear. There were no rales, wheezes or rhonchi. He had normal respiratory effort without use of accessory muscles. CARDIAC: Revealed him to be in a regular rhythm with frequent ectopy; however, I do not appreciate murmurs on exam and the PMI did not appear to be displaced on palpation. ABDOMEN: Distended and mildly tender. EXTREMITIES: Evaluation of both wrists revealed radial pulses that were equal in intensity. There is no evidence of cyanosis or clubbing. Evaluation of lower extremities revealed only trace peripheral edema bilaterally. SKIN: I do not appreciate any rashes on examination today. LABORATORY STUDIES: Obtained at time of admission include a white cell count of 13.5, hemoglobin of 16, platelet count was 218. Sodium is 137, potassium is 4.4, BUN was 23, creatinine was 1.2. Liver function tests were normal. Abdomen and pelvic CT was consistent with the small bowel obstruction, but no free air. Single view chest x-ray was also obtained which revealed mild cardiomegaly, but no other acute findings. A review of the patient's telemetry reveals predominantly sinus rhythm with frequent PCVs. The patient did have a stress echo obtained on an outpatient basis 06/30/2016, this revealed preserved left ventricular systolic function without region wall motion abnormalities. There is no valvular heart disease noted. Stress echo was negative for inducible ischemia. The patient did have PVCs at rest, which diminished with exercise. Holter monitor obtained in October 2015 did not reveal any significant percentage of PVCs. There was no atrial fibrillation or nonsustained ventricular tachycardia. ASSESSMENT AND PLAN: 1. Frequent PVCs and nonsustained VT: The patient has a history of this malady, but since starting flecainide therapy, appears to have had significant improvement. He has preserved left ventricular systolic function. He has some PVCs at baseline which appeared to improve with exercise suggesting a more benign etiology. The patient will not be able to take flecainide for several days due to his intestinal obstruction. This should pose no significant risk to the patient. He may in fact have more PVCs or even brief runs of nonsustained VT during his hospitalization. However, this does not pose a clinical concern especially in the short term and no alternative antiarrhythmic therapy is required in this setting. 2. Atrial fibrillation: This was discovered incidentally on Holter monitoring. The patient does not appear to have episodes of symptomatic atrial fibrillation. He is on systemic anticoagulation for atrial fibrillation based on his risk factors. The patient will not be able to take Eliquis for several days due to his intestinal obstruction, however, his day-to-day risk of thromboembolic events is quite small. I do not feel that there is a need for bridge therapy at this juncture. He should simply resume his Eliquis at the earliest opportunity.
[2016-09-04] VITALS (7 sets, daily range): BP systolic 111–162; BP diastolic 63–82; PULSE 53–76; TEMP 36.4–36.8; O2SAT 94–98
[2016-09-04] MEDS: RANITIDINE IV 50 MG in DEXTROSE 5% 100ML 100 ML IV SCH ×3 (04:00→19:21)
[2016-09-04 07:06] LABS: BASO % 0.3 %; BASO ABS # 0.02 K/uL (0-0.2); COMPLETE YES; EOS % 3.4 %; HEMATOCRIT 40.5 % (42-52); IG% 0.1 %; LYMPH % 14.6 %; LYMPH ABS # 1.16 K/uL (1.2-3.4); MEAN CELL VOLUME 89.2 fL (80-100); MEAN CORPUSCULAR HEMOGLOBIN 29.1 pg (25-34); MEAN CORPUSCULAR HGB CONC 32.6 g/dl (32-36); MEAN PLATELET VOLUME 9.4 fL (7.4-10.4); MONO % 5.6 %; PLATELET COUNT 184 K/uL (130-400); RED BLOOD COUNT 4.54 M/uL (4.7-6.1); WHITE BLOOD COUNT 7.97 K/uL (4.8-10.8)
[2016-09-04 07:18] LABS: PROTHROMBIN TIME (PATIENT) 10.4 SECONDS (9.0-12.0)
[2016-09-04 07:41] LABS: BUN/CREATININE RATIO 15.1 (10-20); CALCIUM 7.7 mg/dl (8.5-10.1); CREATININE 1.1 mg/dl (0.60-1.40); MAGNESIUM 2.4 mg/dl (1.8-2.4); POTASSIUM 4.2 mmol/L (3.5-5.1)
[2016-09-04] MEDS: NSS + 20MEQ KCL 1000ML 1,000 ML IV SCH ×2 (07:48→19:22)
[2016-09-04] MEDS: PIPERACILL/TAZOBAC IV 4.5 GM in DEXTROSE 5% 100ML 100 ML IV SCH (07:52)
--- NOTE | 2016-09-04 07:54 | Surgery Progress Note ---
Surgery Progress Note Date of Service Sep 04, 2016. Subjective feeling better, some flatus, taking ice Objective Vital Signs: Date Time Temp Pulse Resp B/P (MAP) Pulse Ox O2 Delivery O2 Flow Rate FiO2 09/04/16 04:00 95 Room Air 09/04/16 03:35 36.8 65 18 111/72 (85) 95 BiPAP 09/03/16 23:59 92 Room Air 09/03/16 23:58 37.0 67 20 109/64 (79) 94 BiPAP 09/03/16 20:15 36.4 69 18 133/76 (95) 98 Nasal Cannula 2.0 09/03/16 20:00 Room Air 09/03/16 16:09 36.2 66 20 146/67 (93) 98 Nasal Cannula 2.0 09/03/16 16:00 95 Nasal Cannula 3.0 09/03/16 12:30 36.5 82 18 136/75 (95) 97 Nasal Cannula 3.0 09/03/16 12:00 95 Nasal Cannula 3.0 09/03/16 10:50 36.5 70 18 148/68 (94) 95 Nasal Cannula 3.0 09/03/16 10:50 95 Nasal Cannula 3.0 09/03/16 10:17 78 15 132/75 99 Nasal Cannula 3.0 09/03/16 10:17 76 09/03/16 09:41 76 15 142/73 99 Nasal Cannula 2.0 09/03/16 09:20 99 Nasal Cannula 2.0 09/03/16 08:51 99 Nasal Cannula 3.0 09/03/16 08:50 95 Room Air 09/03/16 08:36 80 17 151/76 92 Room Air Physical Exam: nasogastric drainage (150 cc overnight, clear), urine output ( 400) Abdomen: non distended, soft, + tenderness (improved) Laboratory Results: Results Past 24 Hours Test 09/03/16 07:55 09/03/16 12:05 09/03/16 18:02 09/04/16 00:02 Range/Units Bedside Hemoglobin 16.3 14.0-18.0 g/dl Bedside Hematocrit 48 42-52 % Bedside Sodium 137 135-144 mEq/L Bedside Potassium 4.4 3.3-5.0 mEq/L Bedside Chloride 99 101-112 mEq/L Bedside Total CO2 26 24-31 mEq/l Anion Gap 17.0 16-25 mmol/L Bedside Blood Urea Nitrogen 25 7-18 mg/dl Bedside Creatinine 1.1 0.6-1.3 mg/dl Bedside Glucose (other) 125 70-99 mg/dl Bedside Ionized Calcium (Temitope) 1.19 1.12-1.32 mmol/l Bedside Glucose 153 117 87 70-99 mg/dl Test 09/04/16 06:45 09/04/16 07:09 Range/Units White Blood Count 7.97 4.8-10.8 K/uL Red Blood Count 4.54 4.7-6.1 M/uL Hemoglobin 13.2 14.0-18.0 g/dL Hematocrit 40.5 42-52 % Mean Corpuscular Volume 89.2 80-100 fL Mean Corpuscular Hemoglobin 29.1 25-34 pg Mean Corpuscular Hemoglobin Concent 32.6 32-36 g/dl Platelet Count 184 130-400 K/uL Mean Platelet Volume 9.4 7.4-10.4 fL Neutrophils (%) (Auto) 76.0 % Lymphocytes (%) (Auto) 14.6 % Monocytes (%) (Auto) 5.6 % Eosinophils (%) (Auto) 3.4 % Basophils (%) (Auto) 0.3 % Neutrophils # (Auto) 6.06 1.4-6.5 K/uL Lymphocytes # (Auto) 1.16 1.2-3.4 K/uL Monocytes # (Auto) 0.45 0.11-0.59 K/uL Eosinophils # (Auto) 0.27 0-0.5 K/uL Basophils # (Auto) 0.02 0-0.2 K/uL RDW Standard Deviation 44.0 36.4-46.3 fL RDW Coefficient of Variation 13.5 11.5-14.5 % Immature Granulocyte % (Auto) 0.1 % Immature Granulocyte # (Auto) 0.01 0.00-0.02 K/uL Prothrombin Time 10.4 9.0-12.0 SECONDS Prothromb Time International Ratio 1.0 0.9-1.1 Activated Partial Thromboplast Time 27.0 21.0-31.0 SECONDS Partial Thromboplastin Ratio 1.0 Sodium Level 139 136-145 mmol/L Potassium Level 4.2 3.5-5.1 mmol/L Chloride Level 104 98-107 mmol/L Carbon Dioxide Level 30 21-32 mmol/L Anion Gap 5.0 3-11 mmol/L Blood Urea Nitrogen 17 7-18 mg/dl Creatinine 1.10 0.60-1.40 mg/dl Est Creatinine Clear Calc Drug Dose 96.8 ml/min Estimated GFR () 84.1 Estimated GFR (Non- 72.6 BUN/Creatinine Ratio 15.1 10-20 Random Glucose 102 70-99 mg/dl Calcium Level 7.7 8.5-10.1 mg/dl Magnesium Level 2.4 1.8-2.4 mg/dl Bedside Glucose 98 70-99 mg/dl Assessment & Plan diverticulitis vs PSBO/ileitis? improving WBC normal will d/c NG cont IV zosyn seen with Dr. Olvera CT reviewed, ? ileitis, previous TI ulcers, will consult GI
--- NOTE | 2016-09-04 08:56 | Cardiology Follow-Up ---
Subjective Date of Service: Sep 04, 2016. Pt evaluation today including: conversation w/ patient, physical exam, lab review, review of studies, review of inpatient medication list History of Present Illness Patient feels better today, little in the way of GI symptoms but NG tube still in place. No cardiovascular complaints. Review of Systems Respiratory: No shortness of breath Cardiac: No chest pain, No palpitations Objective Vital Signs Past 12 Hours Date Time Temp Pulse Resp B/P (MAP) Pulse Ox O2 Delivery O2 Flow Rate FiO2 09/04/16 07:10 36.4 76 20 128/77 (94) 95 Room Air 09/04/16 04:00 95 Room Air 09/04/16 03:35 36.8 65 18 111/72 (85) 95 BiPAP 09/03/16 23:59 92 Room Air 09/03/16 23:58 37.0 67 20 109/64 (79) 94 BiPAP Physical Exam Constitutional: Level of Distress: NAD Lungs: Auscultation: breath sounds normal Cardiovascular: Heart Auscultation: RRR, no murmurs NG tube in place Data Laboratory Results: Last 24 Hours Test 09/03/16 12:05 09/03/16 18:02 09/04/16 00:02 09/04/16 06:45 Bedside Glucose 153 mg/dl 117 mg/dl 87 mg/dl White Blood Count 7.97 K/uL Red Blood Count 4.54 M/uL Hemoglobin 13.2 g/dL Hematocrit 40.5 % Mean Corpuscular Volume 89.2 fL Mean Corpuscular Hemoglobin 29.1 pg Mean Corpuscular Hemoglobin Concent 32.6 g/dl Platelet Count 184 K/uL Mean Platelet Volume 9.4 fL Neutrophils (%) (Auto) 76.0 % Lymphocytes (%) (Auto) 14.6 % Monocytes (%) (Auto) 5.6 % Eosinophils (%) (Auto) 3.4 % Basophils (%) (Auto) 0.3 % Neutrophils # (Auto) 6.06 K/uL Lymphocytes # (Auto) 1.16 K/uL Monocytes # (Auto) 0.45 K/uL Eosinophils # (Auto) 0.27 K/uL Basophils # (Auto) 0.02 K/uL RDW Standard Deviation 44.0 fL RDW Coefficient of Variation 13.5 % Immature Granulocyte % (Auto) 0.1 % Immature Granulocyte # (Auto) 0.01 K/uL Prothrombin Time 10.4 SECONDS Prothromb Time International Ratio 1.0 Activated Partial Thromboplast Time 27.0 SECONDS Partial Thromboplastin Ratio 1.0 Sodium Level 139 mmol/L Potassium Level 4.2 mmol/L Chloride Level 104 mmol/L Carbon Dioxide Level 30 mmol/L Anion Gap 5.0 mmol/L Blood Urea Nitrogen 17 mg/dl Creatinine 1.10 mg/dl Est Creatinine Clear Calc Drug Dose 96.8 ml/min Estimated GFR () 84.1 Estimated GFR (Non- 72.6 BUN/Creatinine Ratio 15.1 Random Glucose 102 mg/dl Calcium Level 7.7 mg/dl Magnesium Level 2.4 mg/dl Test 09/04/16 07:09 Bedside Glucose 98 mg/dl Telemetry reviewed: Frequent isolated premature ventricular beats, no atrial fibrillation Assessment and Plan 1. Premature ventricular beats: These have recurred with discontinuation of flecainide, not surprising. I would recommend restarting flecainide when he tolerates oral intake. No other evaluation necessary at this time. 2. Atrial fibrillation: No recurrent atrial fibrillation, restart flecainide when tolerating oral intake. Thank you for allowing me to participate in his care.
--- NOTE | 2016-09-04 09:11 | SURGERY PROGRESS NOTE ---
DATE: 09/04/2016 SUBJECTIVE: Pawel feels much better than he did yesterday. Last vitals showed a temperature of 36.4, pulse 76, respirations 20, blood pressure 128/77, O2 sats 95 on room air. An NG output was 150 overnight. Urine output was 400. Laboratory studies this morning, his BUN is 17, creatinine 1.0, WBC is down to 7.95 without a left shift. I reviewed the CAT scan with Dr. Kaba this morning and it appears to be the pathology in the area of interest is in the terminal ileum and there is a segment of narrowing just proximal a TI. The patient had had a colonoscopy 3 years ago, at that time it is mentioned that he had some ulceration in the terminal ileum although biopsies were nonindicative of any disease. At this point, I discussed the case with Dr. Whitfield, the metallurgical specialist who had scoped him at that time and put a consult and proceed the patient with the possibility of repeating his colonoscopy. Since the NG tube is minimal drainage and the abdomen is much softer, at this point we will DC the NG tube. ABHINAV
--- NOTE | 2016-09-04 10:00 | Gastrointestinal Consultation ---
Gastrointestinal Consultation Date of Consultation: Sep 04, 2016 Attending Physician: Dr. Olvera Consulting Physician: Dr. Whitfield/ROYER Poe Reason for Consultation: Possible ileitis History of Present Illness Patient is a 61 year old male with a history of recurrent small bowel obstructions admitted yesterday after a sudden onset of severe abdominal pain with associated nausea and vomiting. He did undergo a CT scan with IV enhancement on arrival that demonstrated a "small bowel obstruction with a right lower quadrant transition". He was treated with NG decompression with good output per patient stating "the canister was full". NG tube was discontinued this morning as his abdominal pain improved and abdomen was noted to be softer on exam. Currently, the patient is reporting no abdominal pain but a generalized abdominal tenderness and slight firmness from his usual. No further nausea or vomiting or fever/chills. He remains NPO. Laboratory testing from this morning demonstrated a resolved leukocytosis with a wbc count of 7.97, hemoglobin 13.2, hematocrit 40.5. sodium 139, potassium 4.2, BUN 17 and creatinine 1.10. Past medical history is significant for a prior colonoscopy which demonstrated ileal ulceration with unremarkable histology. The patient does have a history of routine NSAID use which has since been discontinued as he was recently started on Eliquis for paroxysmal atrial fibrillation. No significant alcohol or tobacco use. Family history is significant for sororal history of UC and maternal cousin with Crohn's disease. Dr. Whitfield did discuss with Dr. Olvera this morning the possibility of performing a repeat colonoscopy given clinical picture and past history of ileal ulceration. Past Medical/Surgical History Medical Problems: (1) Small bowel obstruction Status: Acute Surgical Problems: (1) History of total left knee replacement Status: Chronic Past Medical History: 1. Anemia 2. Bradycardia 3. Cervical Radiculopathy 4. Depression 5. Frequent PVCs 6. Hyperglycemia 7. Hypertension 8. Chronic myalgias 9. Paroxysmal atrial fibrillation 10. Peripheral neuropathy 11. Sleep apnea Past Surgical History: 1. Complete colonoscopy 2. Shoulder surgery 3. Left TKA 4. Tonsillectomy Family History See HPI Social History Smoking Status: Former Smoker Alcohol Use: none Drug Use: none Marital Status: Housing Status: lives with family Occupation Status: retired Allergies Coded Allergies: No Known Allergies (Verified , NONE, 09/03/16) Current Medications Home Meds and Scripts Medications Dose Route/Sig Max Daily Dose Days Date Category Ueiru-8-Jjoe Ethyl Esters 1 gm (Sqigx-9-Umru Ethyl Esters) 1 Cap Cap 1 Cap PO DAILY 09/03/16 Reported Hygroton (Chlorthalidone) 25 Mg Tab 25 Mg PO DAILY 09/03/16 Reported Tylenol Extra Strength (Acetaminophen) 500 Mg Tab 1,000 Mg PO Q8H 30 12/22/15 Rx Tambocor (Flecainide Acetate) 100 Mg Tab 100 Mg PO BID 12/21/15 Reported Eliquis (Apixaban) 5 Mg Tab 5 Mg PO BID 11/25/15 Reported Zestril (Lisinopril) 40 Mg Tab 40 Mg PO QPM 04/24/12 Reported Zoloft (Sertraline Hcl) 100 Mg Tab 100 Mg PO HS 04/22/12 Reported Review of Systems Constitutional: + see HPI Eyes: No problem reported ENT: No problem reported Respiratory: No cough, No shortness of breath Cardiac: No chest pain, No palpitations Abdomen: + see HPI Musculoskeletal: + joint pain, + muscle pain Male : No problem reported Neuro: No problem reported Psych: No problem reported Heme: No problem reported Skin: No problem reported Physical Exam Date Time Temp Pulse Resp B/P (MAP) Pulse Ox O2 Delivery O2 Flow Rate FiO2 09/04/16 07:10 36.4 76 20 128/77 (94) 95 Room Air 09/04/16 04:00 95 Room Air 09/04/16 03:35 36.8 65 18 111/72 (85) 95 BiPAP 09/03/16 23:59 92 Room Air 09/03/16 23:58 37.0 67 20 109/64 (79) 94 BiPAP 09/03/16 20:15 36.4 69 18 133/76 (95) 98 Nasal Cannula 2.0 09/03/16 20:00 Room Air 09/03/16 16:09 36.2 66 20 146/67 (93) 98 Nasal Cannula 2.0 09/03/16 16:00 95 Nasal Cannula 3.0 09/03/16 12:30 36.5 82 18 136/75 (95) 97 Nasal Cannula 3.0 09/03/16 12:00 95 Nasal Cannula 3.0 09/03/16 10:50 36.5 70 18 148/68 (94) 95 Nasal Cannula 3.0 09/03/16 10:50 95 Nasal Cannula 3.0 09/03/16 10:17 78 15 132/75 99 Nasal Cannula 3.0 09/03/16 10:17 76 General Appearance: no apparent distress Eyes: EOMI ENT: hearing grossly normal Neck: supple Respiratory/Chest: lungs clear, normal breath sounds, no respiratory distress Cardiovascular: regular rate, rhythm, no gallop, no murmur Abdomen: + abnormal bowel sounds (diminished), + distended, + tenderness Extremities: normal inspection Neurologic/Psych: alert, normal mood/affect, oriented x 3 Skin: warm/dry Laboratory Results Last 24 Hours Test 09/03/16 12:05 09/03/16 18:02 09/04/16 00:02 09/04/16 06:45 Bedside Glucose 153 mg/dl 117 mg/dl 87 mg/dl White Blood Count 7.97 K/uL Red Blood Count 4.54 M/uL Hemoglobin 13.2 g/dL Hematocrit 40.5 % Mean Corpuscular Volume 89.2 fL Mean Corpuscular Hemoglobin 29.1 pg Mean Corpuscular Hemoglobin Concent 32.6 g/dl Platelet Count 184 K/uL Mean Platelet Volume 9.4 fL Neutrophils (%) (Auto) 76.0 % Lymphocytes (%) (Auto) 14.6 % Monocytes (%) (Auto) 5.6 % Eosinophils (%) (Auto) 3.4 % Basophils (%) (Auto) 0.3 % Neutrophils # (Auto) 6.06 K/uL Lymphocytes # (Auto) 1.16 K/uL Monocytes # (Auto) 0.45 K/uL Eosinophils # (Auto) 0.27 K/uL Basophils # (Auto) 0.02 K/uL RDW Standard Deviation 44.0 fL RDW Coefficient of Variation 13.5 % Immature Granulocyte % (Auto) 0.1 % Immature Granulocyte # (Auto) 0.01 K/uL Prothrombin Time 10.4 SECONDS Prothromb Time International Ratio 1.0 Activated Partial Thromboplast Time 27.0 SECONDS Partial Thromboplastin Ratio 1.0 Sodium Level 139 mmol/L Potassium Level 4.2 mmol/L Chloride Level 104 mmol/L Carbon Dioxide Level 30 mmol/L Anion Gap 5.0 mmol/L Blood Urea Nitrogen 17 mg/dl Creatinine 1.10 mg/dl Est Creatinine Clear Calc Drug Dose 96.8 ml/min Estimated GFR () 84.1 Estimated GFR (Non- 72.6 BUN/Creatinine Ratio 15.1 Random Glucose 102 mg/dl Calcium Level 7.7 mg/dl Magnesium Level 2.4 mg/dl Test 09/04/16 07:09 Bedside Glucose 98 mg/dl Impression Patient is a 61 year old male with a history of ileal ulceration and recurrent SBO, admitted with abdominal pain and abnormal CT imaging suggestive of a recurrent small bowel obstruction within the distal small bowel. Plan 1. Keep NPO for now. 2. Abdominal series today. 3. Check a CRP with next labs. 4. Pending results of imaging, Dr. Whitfield will determine if able to proceed with a colonoscopy tomorrow. Thank you for allowing us to participate in the care of this pleasant patient. If you have any questions or concerns, please do not hesitate to contact us. Agree with ROYER Poe as above Abd: Slightly distended, tender LUQ Bowel prep tonight Colonoscopy in the AM
--- NOTE | 2016-09-04 10:38 | DIAGNOSTIC IMAGING REPORT ---
ADDENDUM Addendum: There is no free air. There are dilated small bowel loops measuring up to 43 mm in diameter. There is gas and stool within nondilated colon. The findings are consistent with a partial small bowel obstruction. Electronically signed by: Lars Jose M.D. 09/04/2016 3:27 PM Dictated Date/Time: 09/04/2016 3:27 PM ORIGINAL REPORT ABDOMEN 2VIEW W/PA CHEST RTN CLINICAL HISTORY: SBO dyspnea COMPARISON STUDY: 09/03/2016 FINDINGS: Mild stable cardiomegaly. Lungs are clear. Diaphragms are smooth. IMPRESSION: Mild stable cardiomegaly. Lungs remain clear. Electronically signed by: Artie Kaba M.D. 09/04/2016 10:37 AM Dictated Date/Time: 09/04/2016 10:37 AM
--- NOTE | 2016-09-04 13:22 | Progress Note ---
Subjective Date of Service: Sep 04, 2016. Subjective Pt evaluation today including: conversation w/ patient, physical exam, lab review, review of studies, conversation w/ documentum consultant, review of inpatient medication list Pain: no pain today PO Intake: NPO Voiding: no voiding problems patient feeling better today, started to pass flatus last evening, no BM still no vomiting appreciate surgery and GI notes, possible colonoscopy tomorrow Problem List Medical Problems: (1) Small bowel obstruction Status: Acute Surgical Problems: (1) History of total left knee replacement Status: Chronic Review of Systems Abdomen: + constipation (no obstipation) All Other Systems: Reviewed and Negative Medications Current Inpatient Medications Medications (Trade) Dose Ordered Sig/Chante Route Start Time Stop Time Status Last Admin Dose Admin Ioversol (Optiray 320) 125 ml UD PRN IV 09/03/16 08:00 09/07/16 07:59 Potassium Chloride/Sodium Chloride 1,000 ml @ 100 mls/hr Q10H IV 09/03/16 12:00 10/03/16 11:59 09/04/16 07:48 100 MLS/HR Ondansetron HCl (Zofran Inj) 4 mg Q6H PRN IV 09/03/16 09:45 10/03/16 09:44 Acetaminophen 100 ml @ 400 mls/hr Q8H PRN IV 09/03/16 09:45 10/03/16 09:44 Morphine Sulfate (MoRPHine SULFATE INJ) 2 mg Q2H PRN IV 09/03/16 09:45 09/17/16 09:44 09/03/16 11:48 2 MG Morphine Sulfate (MoRPHine SULFATE INJ) 4 mg Q2H PRN IV 09/03/16 09:45 09/17/16 09:44 09/03/16 23:45 4 MG Piperacillin Sod/ Tazobactam Sod 4.5 gm/Dextrose 120 ml @ 30 mls/hr Q8H IV 09/03/16 16:00 09/13/16 10:59 09/04/16 07:52 30 MLS/HR Lorazepam (Ativan Inj) 0.5 mg Q4H PRN IV 09/03/16 10:00 10/03/16 09:59 Ranitidine HCl 50 mg/Dextrose 102 ml @ 200 mls/hr Q8H IV 09/03/16 12:00 10/03/16 11:59 09/04/16 12:01 200 MLS/HR Piperacillin Sod/ Tazobactam Sod (Consult) 1 ea UD PRN N/A 09/03/16 10:30 10/03/16 10:29 Lorazepam 0.5 mg/ Syringe 1 ml @ 1 mls/min Q4H PRN IV 09/03/16 11:45 10/03/16 11:44 09/03/16 23:44 1 MLS/MIN Objective Vital Signs Date Time Temp Pulse Resp B/P (MAP) Pulse Ox O2 Delivery O2 Flow Rate FiO2 09/04/16 11:16 36.5 61 16 162/63 (96) 94 Room Air 09/04/16 08:00 Room Air 09/04/16 07:10 36.4 76 20 128/77 (94) 95 Room Air 09/04/16 04:00 95 Room Air 09/04/16 03:35 36.8 65 18 111/72 (85) 95 BiPAP 09/03/16 23:59 92 Room Air 09/03/16 23:58 37.0 67 20 109/64 (79) 94 BiPAP 09/03/16 20:15 36.4 69 18 133/76 (95) 98 Nasal Cannula 2.0 09/03/16 20:00 Room Air 09/03/16 16:09 36.2 66 20 146/67 (93) 98 Nasal Cannula 2.0 09/03/16 16:00 95 Nasal Cannula 3.0 Physical Exam General Appearance: no apparent distress, + obese Neck: supple, no adenopathy, no JVD, trachea midline Respiratory/Chest: chest non-tender, lungs clear, normal breath sounds, no respiratory distress, no accessory muscle use Cardiovascular: regular rate, rhythm, no edema, no gallop, no JVD, no murmur Abdomen: normal bowel sounds, non tender, soft, no organomegaly Extremities: normal range of motion, non-tender, normal inspection, no pedal edema, no calf tenderness, pelvis stable Neurologic/Psychiatric: cotton jammer II-XII nml as tested, no motor/sensory deficits, alert, normal mood/affect, oriented x 3 Skin: normal color, warm/dry, no rash Lymphatic: no adenopathy Laboratory Results Last 24 Hours Test 09/03/16 18:02 09/04/16 00:02 09/04/16 06:45 09/04/16 07:09 Bedside Glucose 117 mg/dl 87 mg/dl 98 mg/dl White Blood Count 7.97 K/uL Red Blood Count 4.54 M/uL Hemoglobin 13.2 g/dL Hematocrit 40.5 % Mean Corpuscular Volume 89.2 fL Mean Corpuscular Hemoglobin 29.1 pg Mean Corpuscular Hemoglobin Concent 32.6 g/dl Platelet Count 184 K/uL Mean Platelet Volume 9.4 fL Neutrophils (%) (Auto) 76.0 % Lymphocytes (%) (Auto) 14.6 % Monocytes (%) (Auto) 5.6 % Eosinophils (%) (Auto) 3.4 % Basophils (%) (Auto) 0.3 % Neutrophils # (Auto) 6.06 K/uL Lymphocytes # (Auto) 1.16 K/uL Monocytes # (Auto) 0.45 K/uL Eosinophils # (Auto) 0.27 K/uL Basophils # (Auto) 0.02 K/uL RDW Standard Deviation 44.0 fL RDW Coefficient of Variation 13.5 % Immature Granulocyte % (Auto) 0.1 % Immature Granulocyte # (Auto) 0.01 K/uL Prothrombin Time 10.4 SECONDS Prothromb Time International Ratio 1.0 Activated Partial Thromboplast Time 27.0 SECONDS Partial Thromboplastin Ratio 1.0 Sodium Level 139 mmol/L Potassium Level 4.2 mmol/L Chloride Level 104 mmol/L Carbon Dioxide Level 30 mmol/L Anion Gap 5.0 mmol/L Blood Urea Nitrogen 17 mg/dl Creatinine 1.10 mg/dl Est Creatinine Clear Calc Drug Dose 96.8 ml/min Estimated GFR () 84.1 Estimated GFR (Non- 72.6 BUN/Creatinine Ratio 15.1 Random Glucose 102 mg/dl Calcium Level 7.7 mg/dl Magnesium Level 2.4 mg/dl Test 09/04/16 10:51 Bedside Glucose 106 mg/dl Assessment and Plan 61 yo male with h/o SBO, paroxysmal afib, PVC's presenting with abdominal pain, constipation, vomiting. SBO seen on CT scan - SBO, diverticulitis?: appears to be resolving clinically, passing flatus, no BM yet, abdomen less tense, NGT removed this AM GI consulted to consider colonoscopy, would happen tomorrow defer diet to GI and surgery continue Zosyn IV - Paroxysmal afib: currently in NSR, resume Flecainide and Eliquis once able to take PO - PVC's, Vtach: happened in the past, resume Flecainide and Eliquis once able to take PO - Depression/anxiety: hold Zoloft for now Plan: keep on tele, possible colonoscopy tomorrow
[2016-09-04] MEDS ORDERED: DiphenhydrAMINE HCL 50 MG/ML VIAL IV PRN (15:45)
[2016-09-04] MEDS: CIPROFLOXACIN / D5W 400 MG in PREMIXED IN D5W 200 ML IV SCH (16:00)
[2016-09-04] MEDS: METRONIDAZOLE / NSS 500 MG in PREMIXED NSS 100 ML IV SCH (17:58)
[2016-09-04] MEDS ORDERED: LAVAGE SOLUTION 4000ML PO SCH (20:00)
[2016-09-05] MEDS: METRONIDAZOLE / NSS 500 MG in PREMIXED NSS 100 ML IV SCH ×2 (01:37→10:11)
[2016-09-05 03:47] VITALS: BP 141/81; PULSE 64; TEMP 36.5; O2SAT 98
[2016-09-05] MEDS: RANITIDINE IV 50 MG in DEXTROSE 5% 100ML 100 ML IV SCH ×2 (03:47→14:26)
[2016-09-05] MEDS: CIPROFLOXACIN / D5W 400 MG in PREMIXED IN D5W 200 ML IV SCH (03:48)
[2016-09-05] MEDS: NSS + 20MEQ KCL 1000ML 1,000 ML IV SCH ×2 (03:48→14:00)
[2016-09-05 06:46] LABS: BASO % 0.3 %; BASO ABS # 0.02 K/uL (0-0.2); COMPLETE YES; EOS % 5.7 %; HEMATOCRIT 37.6 % (42-52); IG% 0.3 %; LYMPH % 20.5 %; LYMPH ABS # 1.18 K/uL (1.2-3.4); MEAN CORPUSCULAR HEMOGLOBIN 30.6 pg (25-34); MEAN PLATELET VOLUME 9.6 fL (7.4-10.4); MONO % 9.5 %; NEUT % 63.7 %; PLATELET COUNT 160 K/uL (130-400); RED BLOOD COUNT 4.18 M/uL (4.7-6.1); WHITE BLOOD COUNT 5.76 K/uL (4.8-10.8)
[2016-09-05 06:55] LABS: PARTIAL THROMBOPLASTIN RATIO 1.1
[2016-09-05 07:27] LABS: BUN/CREATININE RATIO 10.3 (10-20); C-REACTIVE PROTEIN 2.47 mg/dl (0-0.29); CALCIUM 7.9 mg/dl (8.5-10.1); CREATININE 0.94 mg/dl (0.60-1.40); MAGNESIUM 2.5 mg/dl (1.8-2.4); POTASSIUM 4.1 mmol/L (3.5-5.1)
[2016-09-05 07:50] VITALS: BP 126/67; PULSE 66; TEMP 36.6; O2SAT 96
--- NOTE | 2016-09-05 07:50 | Surgery Progress Note ---
Surgery Progress Note Date of Service Sep 05, 2016. Subjective + feeling well, No complaints, No nausea Objective Vital Signs: Date Time Temp Pulse Resp B/P (MAP) Pulse Ox O2 Delivery O2 Flow Rate FiO2 09/05/16 04:00 Room Air 09/05/16 03:47 36.5 64 16 141/81 (101) 98 CPAP 09/05/16 00:00 Room Air 09/04/16 23:38 36.5 68 18 137/82 (100) 97 Room Air 09/04/16 20:00 Room Air 09/04/16 19:32 36.5 53 22 135/72 (93) 95 Room Air 09/04/16 16:00 Room Air 09/04/16 15:23 36.4 66 20 126/75 (92) 98 Room Air 09/04/16 12:00 Room Air 09/04/16 11:16 36.5 61 16 162/63 (96) 94 Room Air 09/04/16 08:00 Room Air Abdomen: non tender, non distended, soft Laboratory Results: Results Past 24 Hours Test 09/04/16 10:51 09/04/16 16:38 09/05/16 06:25 Range/Units Bedside Glucose 106 120 70-99 mg/dl White Blood Count 5.76 4.8-10.8 K/uL Red Blood Count 4.18 4.7-6.1 M/uL Hemoglobin 12.8 14.0-18.0 g/dL Hematocrit 37.6 42-52 % Mean Corpuscular Volume 90.0 80-100 fL Mean Corpuscular Hemoglobin 30.6 25-34 pg Mean Corpuscular Hemoglobin Concent 34.0 32-36 g/dl Platelet Count 160 130-400 K/uL Mean Platelet Volume 9.6 7.4-10.4 fL Neutrophils (%) (Auto) 63.7 % Lymphocytes (%) (Auto) 20.5 % Monocytes (%) (Auto) 9.5 % Eosinophils (%) (Auto) 5.7 % Basophils (%) (Auto) 0.3 % Neutrophils # (Auto) 3.66 1.4-6.5 K/uL Lymphocytes # (Auto) 1.18 1.2-3.4 K/uL Monocytes # (Auto) 0.55 0.11-0.59 K/uL Eosinophils # (Auto) 0.33 0-0.5 K/uL Basophils # (Auto) 0.02 0-0.2 K/uL RDW Standard Deviation 43.9 36.4-46.3 fL RDW Coefficient of Variation 13.3 11.5-14.5 % Immature Granulocyte % (Auto) 0.3 % Immature Granulocyte # (Auto) 0.02 0.00-0.02 K/uL Prothrombin Time 11.0 9.0-12.0 SECONDS Prothromb Time International Ratio 1.0 0.9-1.1 Activated Partial Thromboplast Time 27.7 21.0-31.0 SECONDS Partial Thromboplastin Ratio 1.1 Sodium Level 140 136-145 mmol/L Potassium Level 4.1 3.5-5.1 mmol/L Chloride Level 106 98-107 mmol/L Carbon Dioxide Level 30 21-32 mmol/L Anion Gap 4.0 3-11 mmol/L Blood Urea Nitrogen 10 7-18 mg/dl Creatinine 0.94 0.60-1.40 mg/dl Est Creatinine Clear Calc Drug Dose 113.0 ml/min Estimated GFR () 101.7 Estimated GFR (Non- 87.8 BUN/Creatinine Ratio 10.3 10-20 Random Glucose 99 70-99 mg/dl Calcium Level 7.9 8.5-10.1 mg/dl Magnesium Level 2.5 1.8-2.4 mg/dl C-Reactive Protein 2.47 0-0.29 mg/dl Assessment & Plan ileitis improving seen with Dr. Olvera for colonoscopy today will sign off
--- NOTE | 2016-09-05 08:08 | SURGERY PROGRESS NOTE ---
DATE: 09/05/2016 SUBJECTIVE: Pawel feels well. The NG tube was removed. The abdomen is completely benign. He had a bowel prep. He is due for a colonoscopy this morning. From my point of view, there is nothing that needed further therapy at this time. He does have a longstanding history of gallstones, symptomatic. I recommended for the present time that he watches his diet, more specifically, especially the fact that he may need to be placed on steroids if this shows any active Crohn's disease. He should address the issue of having a cholecystectomy in the future once this acute problem resolves. There is no need to follow up with us. He should follow up with his primary care physician. His laboratory this morning, his hemoglobin is 12.8, his white count is 5.76. There is no left shift. BUN 10, creatinine 0.94. His temperature is 36.5, pulse 64, respirations 16, blood pressure 141/81.
--- NOTE | 2016-09-05 09:41 | Cardiology Follow-Up ---
Subjective Date of Service: Sep 05, 2016. Pt evaluation today including: conversation w/ patient, physical exam, lab review, review of studies, review of inpatient medication list History of Present Illness He is doing well today, no GI complaints, NG tube is out. No cardiovascular complaints. Social History Smoking Status: Former Smoker History of Alcohol Use: Yes (RARE 1 A WEEK) Review of Systems Respiratory: No cough, No shortness of breath Cardiac: No chest pain, No palpitations Medications No cardiovascular meds Objective Vital Signs Past 12 Hours Date Time Temp Pulse Resp B/P (MAP) Pulse Ox O2 Delivery O2 Flow Rate FiO2 09/05/16 08:00 Room Air 09/05/16 07:50 36.6 66 16 126/67 (86) 96 Room Air 09/05/16 04:00 Room Air 09/05/16 03:47 36.5 64 16 141/81 (101) 98 CPAP 09/05/16 00:00 Room Air 09/04/16 23:38 36.5 68 18 137/82 (100) 97 Room Air Last Recorded Weight-Kilograms: 126.200 Physical Exam Constitutional: Level of Distress: NAD Lungs: Auscultation: breath sounds normal Cardiovascular: Heart Auscultation: RRR, no murmurs Extremities: no edema NG tube in place Data Laboratory Results: Last 24 Hours Test 09/04/16 10:51 09/04/16 16:38 09/05/16 06:25 Bedside Glucose 106 mg/dl 120 mg/dl White Blood Count 5.76 K/uL Red Blood Count 4.18 M/uL Hemoglobin 12.8 g/dL Hematocrit 37.6 % Mean Corpuscular Volume 90.0 fL Mean Corpuscular Hemoglobin 30.6 pg Mean Corpuscular Hemoglobin Concent 34.0 g/dl Platelet Count 160 K/uL Mean Platelet Volume 9.6 fL Neutrophils (%) (Auto) 63.7 % Lymphocytes (%) (Auto) 20.5 % Monocytes (%) (Auto) 9.5 % Eosinophils (%) (Auto) 5.7 % Basophils (%) (Auto) 0.3 % Neutrophils # (Auto) 3.66 K/uL Lymphocytes # (Auto) 1.18 K/uL Monocytes # (Auto) 0.55 K/uL Eosinophils # (Auto) 0.33 K/uL Basophils # (Auto) 0.02 K/uL RDW Standard Deviation 43.9 fL RDW Coefficient of Variation 13.3 % Immature Granulocyte % (Auto) 0.3 % Immature Granulocyte # (Auto) 0.02 K/uL Prothrombin Time 11.0 SECONDS Prothromb Time International Ratio 1.0 Activated Partial Thromboplast Time 27.7 SECONDS Partial Thromboplastin Ratio 1.1 Sodium Level 140 mmol/L Potassium Level 4.1 mmol/L Chloride Level 106 mmol/L Carbon Dioxide Level 30 mmol/L Anion Gap 4.0 mmol/L Blood Urea Nitrogen 10 mg/dl Creatinine 0.94 mg/dl Est Creatinine Clear Calc Drug Dose 113.0 ml/min Estimated GFR () 101.7 Estimated GFR (Non- 87.8 BUN/Creatinine Ratio 10.3 Random Glucose 99 mg/dl Calcium Level 7.9 mg/dl Magnesium Level 2.5 mg/dl C-Reactive Protein 2.47 mg/dl Telemetry reviewed: Sinus rhythm and sinus bradycardia, occasional PVCs. No atrial fibrillation. Assessment and Plan 1. Premature ventricular beats: These have recurred with discontinuation of flecainide, not surprising. I would recommend restarting flecainide when he tolerates oral intake. No other evaluation necessary at this time. 2. Atrial fibrillation: No recurrent atrial fibrillation, restart flecainide when tolerating oral intake. Restart Eliquis when tolerating oral intake. We will arrange follow-up in the office. Thank you for allowing me to participate in his care.
[2016-09-05 12:01] VITALS: BP 145/76; PULSE 66; TEMP 36.6; O2SAT 99
[2016-09-05] MEDS ORDERED: PROPOFOL IV EMULSION 10 MG/ML 20 ML VIAL IV ONE ×2 (13:10→13:33)
[2016-09-05] MEDS ORDERED: LIDOCAINE HCL 2% 2 ML VIAL (20MG/ML) ONE (13:10)
--- NOTE | 2016-09-05 13:17 | Gastroenterology Progress Note ---
Progress Note Date of Service: Sep 05, 2016 Subjective Pt evaluation today including: conversation w/ patient, physical exam, chart review, lab review, review of studies "Feeling a little better today." Still with mild abdominal tenderness in mid- abdomen 3/10 in intensity, non-radiating without exacerbating factors. No rectal bleeding or hematemesis overnight. Tolerated bowel prep without difficulty. Medications Current Inpatient Medications Medications (Trade) Dose Ordered Sig/Chante Route Start Time Stop Time Status Last Admin Dose Admin Ioversol (Optiray 320) 125 ml UD PRN IV 09/03/16 08:00 09/07/16 07:59 Potassium Chloride/Sodium Chloride 1,000 ml @ 100 mls/hr Q10H IV 09/03/16 12:00 10/03/16 11:59 09/05/16 03:48 100 MLS/HR Ondansetron HCl (Zofran Inj) 4 mg Q6H PRN IV 09/03/16 09:45 10/03/16 09:44 Acetaminophen 100 ml @ 400 mls/hr Q8H PRN IV 09/03/16 09:45 10/03/16 09:44 Morphine Sulfate (MoRPHine SULFATE INJ) 2 mg Q2H PRN IV 09/03/16 09:45 09/17/16 09:44 09/03/16 11:48 2 MG Morphine Sulfate (MoRPHine SULFATE INJ) 4 mg Q2H PRN IV 09/03/16 09:45 09/17/16 09:44 09/03/16 23:45 4 MG Lorazepam (Ativan Inj) 0.5 mg Q4H PRN IV 09/03/16 10:00 10/03/16 09:59 Ranitidine HCl 50 mg/Dextrose 102 ml @ 200 mls/hr Q8H IV 09/03/16 12:00 10/03/16 11:59 09/05/16 03:47 200 MLS/HR Lorazepam 0.5 mg/ Syringe 1 ml @ 1 mls/min Q4H PRN IV 09/03/16 11:45 10/03/16 11:44 09/03/16 23:44 1 MLS/MIN Ciprofloxacin/ Dextrose 400 mg/ Prmx 200 ml @ 100 mls/hr Q12H IV 09/04/16 16:00 09/14/16 15:59 09/05/16 03:48 100 MLS/HR Metronidazole 500 mg/Prmx 100 ml @ 100 mls/hr Q8H IV 09/04/16 18:00 09/14/16 17:59 09/05/16 10:11 100 MLS/HR Diphenhydramine HCl (Benadryl Inj) 25 mg Q6 PRN IV 09/04/16 15:45 10/04/16 15:44 09/04/16 19:21 25 MG Objective Vital Signs Date Time Temp Pulse Resp B/P (MAP) Pulse Ox O2 Delivery O2 Flow Rate FiO2 09/05/16 12:26 37 66 18 134/65 (88) 98 Room Air 09/05/16 12:01 36.6 66 20 145/76 (99) 99 Room Air 09/05/16 12:00 Room Air 09/05/16 08:00 Room Air 09/05/16 07:50 36.6 66 16 126/67 (86) 96 Room Air 09/05/16 04:00 Room Air 09/05/16 03:47 36.5 64 16 141/81 (101) 98 CPAP 09/05/16 00:00 Room Air 09/04/16 23:38 36.5 68 18 137/82 (100) 97 Room Air 09/04/16 20:00 Room Air 09/04/16 19:32 36.5 53 22 135/72 (93) 95 Room Air 09/04/16 16:00 Room Air 09/04/16 15:23 36.4 66 20 126/75 (92) 98 Room Air Physical Exam General Appearance: no apparent distress Respiratory/Chest: lungs clear Cardiovascular: regular rate, rhythm Abdomen: soft, + tenderness Laboratory Results Last 24 Hours Test 09/04/16 16:38 09/05/16 06:25 Bedside Glucose 120 mg/dl White Blood Count 5.76 K/uL Red Blood Count 4.18 M/uL Hemoglobin 12.8 g/dL Hematocrit 37.6 % Mean Corpuscular Volume 90.0 fL Mean Corpuscular Hemoglobin 30.6 pg Mean Corpuscular Hemoglobin Concent 34.0 g/dl Platelet Count 160 K/uL Mean Platelet Volume 9.6 fL Neutrophils (%) (Auto) 63.7 % Lymphocytes (%) (Auto) 20.5 % Monocytes (%) (Auto) 9.5 % Eosinophils (%) (Auto) 5.7 % Basophils (%) (Auto) 0.3 % Neutrophils # (Auto) 3.66 K/uL Lymphocytes # (Auto) 1.18 K/uL Monocytes # (Auto) 0.55 K/uL Eosinophils # (Auto) 0.33 K/uL Basophils # (Auto) 0.02 K/uL RDW Standard Deviation 43.9 fL RDW Coefficient of Variation 13.3 % Immature Granulocyte % (Auto) 0.3 % Immature Granulocyte # (Auto) 0.02 K/uL Prothrombin Time 11.0 SECONDS Prothromb Time International Ratio 1.0 Activated Partial Thromboplast Time 27.7 SECONDS Partial Thromboplastin Ratio 1.1 Sodium Level 140 mmol/L Potassium Level 4.1 mmol/L Chloride Level 106 mmol/L Carbon Dioxide Level 30 mmol/L Anion Gap 4.0 mmol/L Blood Urea Nitrogen 10 mg/dl Creatinine 0.94 mg/dl Est Creatinine Clear Calc Drug Dose 113.0 ml/min Estimated GFR () 101.7 Estimated GFR (Non- 87.8 BUN/Creatinine Ratio 10.3 Random Glucose 99 mg/dl Calcium Level 7.9 mg/dl Magnesium Level 2.5 mg/dl C-Reactive Protein 2.47 mg/dl Assessment and Plan Assessment: 61 yo CM who presented with PSBO and has prior colonoscopy with terminal ileal ulcers felt to be related to NSAID's. Plan: Proceed with colonoscopy.
--- NOTE | 2016-09-05 13:46 | GI REPORT ---
Procedure Date: 09/05/2016 1:18 PM Procedure: Colonoscopy Indications: Abnormal CT of the GI tract Medicines: Monitored Anesthesia Care Complications: No immediate complications. Estimated Blood Loss: Estimated blood loss: none. Procedure: Pre-Anesthesia Assessment: - Prior to the procedure, a History and Physical was performed, and patient medications and allergies were reviewed. The patient's tolerance of previous anesthesia was also reviewed. The risks and benefits of the procedure and the sedation options and risks were discussed with the patient. All questions were answered, and informed consent was obtained. Prior Anticoagulants: The patient has taken Xarelto (rivaroxaban), last dose was 3 days prior to procedure. ASA Grade Assessment: III - A patient with severe systemic disease. After reviewing the risks and benefits, the patient was deemed in satisfactory condition to undergo the procedure. After I obtained informed consent, the scope was passed under direct vision. Throughout the procedure, the patient's blood pressure, pulse, and oxygen saturations were monitored continuously. The scope was introduced through the anus and advanced to the terminal ileum. The colonoscopy was performed without difficulty. The patient tolerated the procedure well. The quality of the bowel preparation was good. The terminal ileum, ileocecal valve, appendiceal orifice, and rectum were photographed. Findings: Non-bleeding internal hemorrhoids were found during retroflexion. The hemorrhoids were small. The exam was otherwise without abnormality. Impression: - Non-bleeding internal hemorrhoids. - The examination was otherwise normal. - No specimens collected. Recommendation: - Resume previous diet. - Continue present medications. - Repeat colonoscopy in 10 years for surveillance. - Return to primary care physician as previously scheduled. Bob Whitfield, DO 09/05/2016 1:45:44 PM This report has been signed electronically. Note Initiated On: 09/05/2016 1:18 PM I attest to the content of the Intraoperative Record and orders documented therein, exceptions below
--- NOTE | 2016-09-05 14:20 | Anesthesiology Progress Note ---
Anesthesia Post Op Note Date & Time Sep 05, 2016 at 14:20 Vital Signs Pain Intensity: 0 Vital Signs Past 12 Hours Date Time Temp Pulse Resp B/P (MAP) Pulse Ox O2 Delivery O2 Flow Rate FiO2 09/05/16 14:12 57 18 151/70 (97) 97 Room Air 09/05/16 13:55 72 18 144/79 (100) 94 Room Air 09/05/16 13:40 66 18 106/41 (62) 96 Room Air 09/05/16 12:26 37 66 18 134/65 (88) 98 Room Air 09/05/16 12:01 36.6 66 20 145/76 (99) 99 Room Air 09/05/16 12:00 Room Air 09/05/16 08:00 Room Air 09/05/16 07:50 36.6 66 16 126/67 (86) 96 Room Air 09/05/16 04:00 Room Air 09/05/16 03:47 36.5 64 16 141/81 (101) 98 CPAP Notes Mental Status: alert / awake / arousable, participated in evaluation Pt Amnestic to Procedure: Yes Nausea / Vomiting: adequately controlled Pain: adequately controlled Airway Patency, RR, SpO2: stable & adequate BP & HR: stable & adequate Hydration State: stable & adequate Anesthetic Complications: no major complications apparent
--- NOTE | 2016-09-05 14:51 | Discharge Instructions ---
Discharge Instructions Date of Service Sep 05, 2016. Admission Reason for Admission: Paroxysmal Atrial Fibrillation,Small Bowel Obstruc Discharge Discharge Diagnosis / Problem: Partial small bowel obstruction, resolved, h/o PVC's and paroxysmal afib Discharge Goals Goal(s): Improve function, Diagnostic testing (small bowel follow through) Activity Recommendations Activity Limitations: resume your previous activity Lifting Limitations: none Exercise/Sports Limitations: as tolerated May Resume Sexual Activity: when tolerated Shower/Bathe: no limitations Driving or Machine Use: no limitations . Instructions / Follow-Up Instructions / Follow-Up Medications: no changes - partial small bowel obstruction: resolved, moved bowels several times with bowel prep initially given antibiotics due to possible diverticulitis, no evidence of this on colonoscopy, will stop antibiotics Dr. Whitfield's office will call you to set up small bowel follow through with radiology FOLLOW UP - Dr. Khan in one week, call for appointment - SBFT, Dr. Burciaga office will arrange Current Hospital Diet Patient's current hospital diet: Clear Liquid Diet Discharge Diet Recommended Diet: AHA Diet (Heart Healthy) Procedures Procedures Performed: Colonoscopy Pending Studies Studies pending at discharge: no Medical Emergencies . Who to Call and When: Medical Emergencies: If at any time you feel your situation is an emergency, please call 911 immediately. . Non-Emergent Contact Non-Emergency issues call your: Primary Care Provider Call Non-Emergent contact if: you have any medication questions . . "Provider Documentation" section prepared by George Holland. . VTE Core Measure Inpt VTE Proph given/why not?: Other Anticoagulation (IV heparin.), SCD's [place] Drug Monitoring Program Search Results: no issues identified
[2016-09-05 15:07] VITALS: BP 151/70; PULSE 57; TEMP 37; O2SAT 97
--- NOTE | 2016-09-05 15:35 | Discharge Summary ---
Discharge Summary Date of Service Sep 05, 2016. Discharge Summary Admission Date: Sep 03, 2016 at 09:44 Discharge Date: Sep 05, 2016 Discharge Disposition: Home Principal Diagnosis: partial small bowel obstruction Problems/Secondary Diagnoses: h/o paroxysmal atrial fibrillation h/o PVC's Immunizations: Have You Had Influenza Vaccine: No History of Tetanus Vaccine?: YES, 2007. History of Pneumococcal: No History of Hepatitis B Vaccine: Yes Procedures: Colonoscopy 09/05 - normal Consultations: Cardiology Gastroenterology Surgery Medication Reconciliation Continued Medications: Acetaminophen (Tylenol Extra Strength) 500 Mg Tab 1000 MG PO Q8H for 30 Days, #180 TAB Apixaban (Eliquis) 5 Mg Tab 5 MG PO BID Chlorthalidone (Hygroton) 25 Mg Tab 25 MG PO DAILY, #30 Flecainide (Tambocor) 100 Mg Tab 100 MG PO BID, TAB Lisinopril (Zestril) 40 Mg Tab 40 MG PO QPM Lrtmn-0-Pssl Ethyl Esters (Azjpn-6-Qtxo Ethyl Esters 1 gm) 1 Cap Cap 1 CAP PO DAILY, #180 Sertraline Hcl (Zoloft) 100 Mg Tab 100 MG PO HS Discharge Exam Patient feeling well, tolerated bowel prep last evening, several bowel movements. Had colonoscopy today that was normal. Will have SBFT as outpatient. Review of Systems: Constitutional: No fever, No chills, No sweats, No weight loss, No weakness , No fatigue, No problem reported Eyes: No worsening of vision, No eye pain, No redness, No discharge, No diplopia, No problem reported Respiratory: No cough, No sputum, No wheezing, No shortness of breath, No dyspnea on exertion, No dyspnea at rest, No hemoptysis, No problem reported Cardiovascular: No chest pain, No orthopnea, No PND, No edema, No claudication, No palpitations, No problem reported Abdomen: No pain, No nausea, No vomiting, No diarrhea, No constipation, No GI bleeding, No problem reported Musculoskeletal: No joint pain, No muscle pain, No swelling, No calf pain, No problem reported Genitourinary - Male: No hematuria, No dysuria, No urinary frequency, No urinary urgency Neurologic: No memory loss, No paralysis, No weakness, No numbness/tingling , No vertigo, No balance problems, No problem reported Psychiatric: No depression symptoms, No anhedonism, No anxiety, No insomnia , No substance abuse, No problem reported Endocrine: No fatigue, No excessive thirst, No excessive urination, No problem reported Hematologic / Lymphatic: No abnormal bleeding/bruising, No clotting problems , No swollen lymph nodes, No night sweats, No problem reported Integumentary: No rash, No itch, No new/changing skin lesions, No color change, No bleeding, No problem reported Physical Exam: General Appearance: no apparent distress, + obese Eyes: normal inspection, EOMI, sclerae normal ENT: normal ENT inspection, hearing grossly normal, pharynx normal Neck: supple, no adenopathy, no JVD, trachea midline Respiratory/Chest: chest non-tender, lungs clear, normal breath sounds, no respiratory distress, no accessory muscle use Cardiovascular: regular rate, rhythm, no edema, no gallop, no JVD, no murmur , normal peripheral pulses Abdomen / GI: normal bowel sounds, non tender, soft, no organomegaly Extremities: normal inspection, no calf tenderness, normal capillary refill , no pedal edema, normal range of motion, pelvis stable Neurologic/Psychiatric: audio visual aids director II-XII nml as tested, no motor/sensory deficits , alert, normal mood/affect, normal reflexes, oriented x 3 Skin: normal color, warm/dry, no rash Lymphatic: no adenopathy Hospital Course 61 yo male with h/o SBO, paroxysmal afib, PVC's presenting with abdominal pain, constipation, vomiting. SBO seen on CT scan - SBO, diverticulitis?: initially had NGT, treated with Zosyn IV for possible diverticulitis component? on day 2 he was passing flatus, GI recommended a colonoscopy, the NGT was d/ c and he tolerated clear liquids he completed a bowel prep, large loose stools, no further abdominal distension colonoscopy 09/05, normal GI recommends SBFT as outpatient, they will arrange no signs of diverticulitis, will d/c antibiotics d/c home - Paroxysmal afib: currently in NSR, resume Flecainide and Eliquis on discharge - PVC's, Vtach: happened in the past, resume Flecainide and Eliquis on discharge - Depression/anxiety: resume Zoloft Plan: d/c home Total Time Spent: Less than 30 minutes This includes examination of the patient, discharge planning, medication reconciliation, and communication with other providers. Discharge Instructions Please refer to the electronic Patient Visit Report (Discharge Instructions) for additional information. Follow-Up Dr. Khan in one week Dr. Whitfield after the SBFT Additional Copies To Bob Whitfield D.O.; Maverick Khan M.D.
== END 2016-09-05 15:21 | disposition home or self-care (01) | DRG 389 ==
LOC: C.EDB 07:28 → C.2T 09:44 → ENRESERV 10:09
PROVIDERS: ADMIT Hospitalist; ATTEND Internal Medicine
PROC: 0DJD8ZZ Inspection of Lower Intestinal Tract, Via Natural or Artificial Opening Endoscopic (ICD-10-PCS; principal; 2016-09-05 12:21)
DX: K56.60 Unspecified intestinal obstruction (principal); I47.2 Ventricular tachycardia; I48.91 Unspecified atrial fibrillation; F32.9 Major depressive disorder, single episode, unspecified; F41.9 Anxiety disorder, unspecified; I49.3 Ventricular premature depolarization; G47.33 Obstructive sleep apnea (adult) (pediatric); I10 Essential (primary) hypertension; E78.5 Hyperlipidemia, unspecified; G62.9 Polyneuropathy, unspecified; M48.00 Spinal stenosis, site unspecified; K64.8 Other hemorrhoids; M54.12 Radiculopathy, cervical region; M79.1 Myalgia; Z96.652 Presence of left artificial knee joint; Z87.891 Personal history of nicotine dependence; Z99.89 Dependence on other enabling machines and devices; Z86.2 Personal history of diseases of the blood and blood-forming organs and certain disorders involving the immune mechanism; Z79.01 Long term (current) use of anticoagulants; Z87.19 Personal history of other diseases of the digestive system

== ENCOUNTER → 2016-09-12 | Outpatient (CLI) | payer BC ==
[~2016-09-12] MED LIST changes: -CLB200 PO; +HYG/25 PO; -METO100T14 PO; +OMEG-54 PO; -OXYSR10 PO; -PRVC/20 PO; -RXC5 PO; -SNK PO; -[UNRECOGNIZED DRUG - OTHER] PO; -lovaza PO
--- NOTE | 2016-09-12 08:47 | DIAGNOSTIC IMAGING REPORT ---
DOUBLE CONTRAST UPPER GI SERIES AND SMALL BOWEL FOLLOW-THROUGH CLINICAL HISTORY: Recent small bowel obstruction. Diarrhea. Generalized abdominal pain. COMPARISON STUDY: Abdominal CT dated 09/03/2016. TECHNIQUE: An abdominal human relations teacher radiograph was performed. A standard air contrast upper GI series was then performed. Spot images of the esophagus and stomach were obtained in multiple obliquities with upright and prone. The patient then consumed several of thin barium and a small follow-through was performed. Overhead radiographs and spot compression images were obtained. FINDINGS: The patient swallowed barium without difficulty. The esophagus is structurally normal without evidence of intrinsic or extrinsic mass. The esophageal mucosal pattern is normal. No gastroesophageal reflux was elicited by having the patient perform the Valsalva maneuver. The gastroesophageal junction distends normally. The stomach is normal in configuration and demonstrates normal distensibility. No mass or ulceration is identified. There was no evidence of gastritis. The duodenal bulb and sweep are unremarkable. The abdominal human relations teacher radiograph shows a nonobstructed abdominal bowel gas pattern. Numerous phleboliths are observed in the pelvis. Mild lumbosacral spondylosis is noted. On the small bowel follow-through, there is normal transit time with contrast identified in the colon at 20 minutes. The small bowel mucosal pattern is normal. There is no evidence of stricture or mass. The distal/terminal ileum are slightly underdistended but otherwise normal in appearance on the spot compression views. Fluoroscopy time: 2.9 minutes. Fluoroscopic images: 25 IMPRESSION: Unremarkable fluoroscopic upper GI series and small bowel follow-through. Electronically signed by: Barrington Hickey M.D. 09/12/2016 8:46 AM Dictated Date/Time: 09/12/2016 8:44 AM
== END | disposition home or self-care (01) ==
LOC: C.RAD 07:52
PROVIDERS: ATTEND Internal Medicine
DX: K63.9 Disease of intestine, unspecified (principal)

== ENCOUNTER → 2016-11-17 | Outpatient (CLI) | payer BC ==
[2016-11-17 12:44] LABS: BLOOD UREA NITROGEN 19 mg/dl (7-18); BUN/CREATININE RATIO 18.5 (10-20); CALCIUM 9.5 mg/dl (8.5-10.1); CARBON DIOXIDE 28 mmol/L (21-32); CHLORIDE 102 mmol/L (98-107); CHOLESTEROL 315 mg/dl (0-200); GLUCOSE 104 mg/dl (70-99); POTASSIUM 3.9 mmol/L (3.5-5.1); SODIUM 137 mmol/L (136-145)
[2016-11-17 12:48] LABS: CHOLESTEROL/HDL RATIO 7.5; HDL CHOLESTEROL 42 mg/dl; LDL CHOLESTEROL CALCULATED 222 mg/dl; TRIGLYCERIDES 254 mg/dl (0-150); VERY LOW DENSITY LIPOPROT CALC 51 mg/dl
[2016-11-17 13:01] LABS: LYME DISEASE AB IGG NEG (NEG); LYME DISEASE AB IGM NEG (NEG)
--- NOTE | 2016-11-24 13:33 | CODING QUERY MEDICAL NECESSITY ---
SUPPORTING DIAGNOSIS NEEDED A supporting diagnosis is required for the test/procedure performed on this patient in order for us to be reimbursed by the patient's insurance. Please provide a supporting diagnosis for the following test/procedure listed below next to the test name along with your signature. *If there is no additional diagnosis for this patient that would support the following test/procedure please document that below next to the test/procedure. Test(s)/Procedure(s) that require a supporting diagnosis: * PSA DIAGNOSIS: Provider Signature: Date: Thank you Denise Lockett [employer] Once completed, please kindly fax back to [phone] For questions please call [phone]
== END | disposition home or self-care (01) ==
LOC: C.LABPBG 07:44
PROVIDERS: ATTEND Internal Medicine Geriatric Medicine
DX: E78.5 Hyperlipidemia, unspecified (principal); R37 Sexual dysfunction, unspecified; I10 Essential (primary) hypertension; M19.90 Unspecified osteoarthritis, unspecified site; Z12.5 Encounter for screening for malignant neoplasm of prostate

== ENCOUNTER → 2017-03-06 | Outpatient (CLI) | payer BC ==
[2017-03-06 17:37] LABS: BASO % 0.4 %; BASO ABS # 0.03 K/uL (0-0.2); COMPLETE YES; EOS % 3.6 %; HEMATOCRIT 41.8 % (42-52); IG% 0.1 %; LYMPH % 30.9 %; LYMPH ABS # 2.15 K/uL (1.2-3.4); MEAN CELL VOLUME 90.1 fL (80-100); MEAN CORPUSCULAR HEMOGLOBIN 31.3 pg (25-34); MEAN CORPUSCULAR HGB CONC 34.7 g/dl (32-36); MONO % 6.8 %; NEUT % 58.2 %; PLATELET COUNT 191 K/uL (130-400); RED BLOOD COUNT 4.64 M/uL (4.7-6.1); WHITE BLOOD COUNT 6.95 K/uL (4.8-10.8)
[2017-03-06 18:09] LABS: ALT/SGPT 31 U/L (12-78); AST/SGOT 18 U/L (15-37); BLOOD UREA NITROGEN 19 mg/dl (7-18); BUN/CREATININE RATIO 18.9 (10-20); CALCIUM 8.5 mg/dl (8.5-10.1); CARBON DIOXIDE 26 mmol/L (21-32); CHLORIDE 105 mmol/L (98-107); CHOLESTEROL 199 mg/dl (0-200); CREATININE 1.01 mg/dl (0.60-1.40); GLUCOSE 94 mg/dl (70-99); POTASSIUM 3.5 mmol/L (3.5-5.1); SODIUM 137 mmol/L (136-145)
[2017-03-06 18:17] LABS: ALKALINE PHOSPHATASE 51 U/L (45-117); CHOLESTEROL/HDL RATIO 4.6; HDL CHOLESTEROL 43 mg/dl; THYROID STIMULATING HORMONE 0.941 uIu/ml (0.300-4.500); TRIGLYCERIDES 445 mg/dl (0-150)
== END | disposition home or self-care (01) ==
LOC: C.LABPBG 15:33
PROVIDERS: ATTEND Internal Medicine Geriatric Medicine
DX: I10 Essential (primary) hypertension (principal); E78.5 Hyperlipidemia, unspecified; R73.9 Hyperglycemia, unspecified; M48.00 Spinal stenosis, site unspecified; I48.0 Paroxysmal atrial fibrillation; G47.30 Sleep apnea, unspecified; Z68.38 Body mass index [BMI] 38.0-38.9, adult

== ENCOUNTER → 2017-05-14 | Day surgery (SDC) | payer BC ==
[2017-04-19 08:22] VITALS: Ht 180.3 cm; Wt 125.0 kg
[~2017-05-14] VITALS: Ht 180.3 cm; Wt 125.0 kg
[~2017-05-14] MED LIST changes: +500ML BSS 0.3ML EPI 1:1000PF IRRIG ONE; -ACET-1138 PO; +ACET-1256 PO; +ACETAMINOPHEN 325 MG TAB PO PRN; +AMVISC PLUS 0.8ML SYRINGE INT OCU ONE; +ATROPINE SULFATE 0.1 MG/ML 5ML SYR IV PRN; +BRIMONIDINE TART 0.2% OP SOLN PER DROP CHARGE ONE; +BSS FLUSH ONE; +CLXOPS3 OP; +ENDOCOAT 0.85ML SYRINGE INT OCU ONE; +EpHEDrine SULFATE INJ 50 MG/ML AMP IV PRN; +EpINEphrine INJ 1MG/ML AMP 1 MG/ML AMP ONE; +LACTATED RINGER'S 1000ML 500 ML IV SCH; +LIDOCAINE 4% OP SOLN DROP CHARGE ONE; +LIDOCAINE 4% OP SOLN DROP CHARGE OPL SCH; +LIDOCAINE HCL 1% MPF 2 ML VIAL ONE; +MIDAZOLAM HCL 1 MG/ML 2ML VIAL ONE; +MOXIFLOXACIN OPH SOLN PER DROP CHARGE ONE; +NEPA0.6D OP; -OMEG-54 PO; +OMEG12006 PO; +POVIDONE-IODINE OP SOLN 30 ML BTL ONE; +PRDFOPS OP; +PROPARACAINE 0.5% OP SOLN PER DROP CHARGE OPL SCH; +ROSU5TAB PO; -SERT1TAB68 PO; +SERT50TA PO; +TOBRAMYCIN/DEXAMETHASONE OPH OINT PER APPLN CHARGE ONE
[2017-05-14] MEDS: PHENYLEPHRINE HCL 2.5% OP SOLN PER DROP CHARGE OPL SCH ×2 (08:45→09:02)
[2017-05-14] MEDS: TROPICAMIDE 1% OP SOLN PER DROP CHARGE OPL SCH ×2 (08:46→09:03)
[2017-05-14] MEDS: CYCLOPENTOLATE HCL 1% OP SOLN PER DROP CHARGE OPL SCH ×2 (08:47→09:04)
[2017-05-14] MEDS: KETOROLAC 0.5% OP SOLN PER DROP CHARGE OPL SCH ×2 (08:50→09:05)
--- NOTE | 2017-05-14 08:54 | History & Physical Bridge - [place] ---
H&P Re-Evaluation Bridge Note: I have examined the patient, reviewed the History & Physical and in the interval since the performance of the History & Physical I have noted the following changes of clinical significance: No changes noted
[2017-05-14] MEDS: MOXIFLOXACIN OPH SOLN PER DROP CHARGE OPL SCH ×2 (08:56→09:07)
--- NOTE | 2017-05-14 09:51 | [facility] Operative Report ---
Operative Report Operative Date May 14, 2017. Pre-Operative Diagnosis Cataract Left Eye Post-Operative Diagnosis Same Procedure(s) Performed Left Cataract Phacoemulsification With Intraocular Lens Implant Surgeon Dr. Flores Comic Book Writer Surgeon(s) None Estimated Blood Loss 0ml Findings cataract left eye Fluids see anesthesia record Specimens None Drains None Anesthesia Type MAC Complication(s) none Disposition no Recovery Room / PACU Indications decreased vision left eye Description of Procedure After informed consent was obtained in the holding area the patient was wheeled back to the operating room where cardiac monitoring leads and oxygen by nasal cannula was administered by Anesthesia. Gentle IV sedation was given, and the patient's left eye was prepped and draped in usual sterile fashion. A wire lid speculum was placed into the left eye and the operating microscope was swung into position. Using 0.12 forceps and a Supersharp blade a paracentesis port was made 2 o'clock hours away from the 3 o'clock position of the patient's left eye. 1% non-preserved Lidocaine was then injected into the anterior chamber for anesthesia. A 2.0 mm keratotome blade was then used to make a shelved clear corneal incision at the 3 o'clock position of the left eye. Amvisc was injected into the anterior chamber and a cystotome and Utrata forceps were used to perform a curvilinear capsulorrhexis. BSS on a hydrodissection cannula was used to hydrodissect the lens nucleus away from the capsular bag. The phacoemulsification handpiece was then used in a stop and chop fashion to remove the lens nucleus. The irrigation and aspiration handpiece was then used to remove the residual cortical material. Amvisc was injected into the capsular bag and anterior chamber and a [employer] MX60 21.5 Diopter intraocular lens was injected into the capsular bag. Irrigation and aspiration handpiece was used to remove the residual viscoelastic material. The wounds were hydrated and noted to be watertight. The wire lid speculum was removed from the eye. Vigamox, Brimonidine, and TobraDex ointment were placed on the eye and it was shielded. It should be noted that EndoCoat was used extensively during the case to protect the cornea endothelium. DISPOSITION: The patient tolerated the procedure well and was wheeled to the post anesthesia care unit in stable condition. I attest to the content of the Intraoperative Record and any orders documented therein. Any exceptions are noted below. I attest to the content of the Intraoperative Record and any orders documented therein. Any exceptions are noted below.
--- NOTE | 2017-05-14 09:53 | Discharge Instructions-SurgCtr ---
Discharge Instructions Date of Service May 14, 2017. Visit Reason for Visit: Cataract Left Eye Discharge Discharge Diagnosis / Problem: cataract left eye Discharge Goals Goal(s): Improve function Activity Recommendations Activity Limitations: per Instructions/Follow-up section Lifting Limitations: no more than 5 pounds Anesthesia . Post Anesthesia Instructions: If you have had General Anesthesia or IV Sedation: * Do not drive today. * Resume driving when surgeon permits. * Do not make important decisions or sign legal documents today. * Call surgeon for: 1. Temperature elevations greater than 101 degrees F. 2. Uncontrollable pain. 3. Excessive bleeding. 4. Persistent nausea and vomiting. 5. Medication intolerance (nausea, vomiting or rash). * For nausea and vomiting use only clear liquids such as: tea, soda, bouillon until nausea subsides, then gradually increase diet as tolerated. * If you have any concerns or questions, call your surgeon's office. If physician is unavailable and it is an emergency, call 911 or go to the nearest emergency room. . Instructions / Follow-Up Instructions / Follow-Up ACTIVITY RECOMMENDATIONS: * Light activities * You may walk outside, read, watch television. * Mild irritation and blurred vision are common for the first few days, redness around the white part of the eye is common. MEDICATIONS: Resume previous medications unless instructed otherwise by your surgeon. Eye drops (today and tomorrow): Cipro - one drop in operative eye every 2 hours while awake Prednisolone 1% - one drop in operative eye every 2 hours while awake Ilevro - one drop operative eye 1 times daily SPECIAL CARE INSTRUCTIONS: * If any problems or concerns, please call Dr. Flores's office at . * Keep plastic shield taped over eye to sleep at night. * Keep plastic shield taped over eye except to administer eye drops. * Keep plastic shield on until office visit the following day. FOLLOW UP VISIT: Follow-up with Dr. Flores in the [place] office as scheduled. If not already scheduled, please call the office at . Diet Recommendations Home Diet: resume previous diet Procedures Procedures Performed: Left Cataract Phacoemulsification With Intraocular Lens Implant Pending Studies Studies pending at discharge: no Medical Emergencies . Who to Call and When: Medical Emergencies: If at any time you feel your situation is an emergency, please call 911 immediately. . Non-Emergent Contact Non-Emergency issues call your: Whale Trainer . . "Provider Documentation" section prepared by Inocencio Flores. .
[2017-05-14 09:54] VITALS: TEMP 36.6
--- NOTE | 2017-05-14 09:56 | Anesthesiology Progress Note ---
Anesthesia Post Op Note Date & Time May 14, 2017 at 09:56 Vital Signs Pain Intensity: 0 Vital Signs Past 12 Hours Date Time Temp Pulse Resp B/P (MAP) Pulse Ox O2 Delivery O2 Flow Rate FiO2 05/14/17 08:06 36.8 66 20 148/78 (101) 94 Room Air Notes Mental Status: alert / awake / arousable, participated in evaluation Nausea / Vomiting: adequately controlled Pain: adequately controlled Airway Patency, RR, SpO2: stable & adequate BP & HR: stable & adequate Hydration State: stable & adequate Anesthetic Complications: no major complications apparent
[2017-05-14 10:22] VITALS: BP 131/77; PULSE 55; O2SAT 95
== END | disposition home or self-care (01) ==
LOC: X.SURG 07:58
PROVIDERS: ATTEND Ophthalmology
DX: H25.12 Age-related nuclear cataract, left eye (principal); I10 Essential (primary) hypertension; E78.00 Pure hypercholesterolemia, unspecified; G47.33 Obstructive sleep apnea (adult) (pediatric); Z99.89 Dependence on other enabling machines and devices; F41.9 Anxiety disorder, unspecified; F32.9 Major depressive disorder, single episode, unspecified; E66.9 Obesity, unspecified; Z96.652 Presence of left artificial knee joint; I49.3 Ventricular premature depolarization; Z79.01 Long term (current) use of anticoagulants

== ENCOUNTER 2017-05-15 15:07 | Emergency (ER) | payer BC ==
[~2017-05-15] VITALS: Ht 180.3 cm; Wt 127.1 kg
[~2017-05-15 15:07] MED LIST changes: -500ML BSS 0.3ML EPI 1:1000PF IRRIG ONE; -ACETAMINOPHEN 325 MG TAB PO PRN; -AMVISC PLUS 0.8ML SYRINGE INT OCU ONE; -ATROPINE SULFATE 0.1 MG/ML 5ML SYR IV PRN; -BRIMONIDINE TART 0.2% OP SOLN PER DROP CHARGE ONE; -BSS FLUSH ONE; -CLXOPS3 OP; -ENDOCOAT 0.85ML SYRINGE INT OCU ONE; -EpHEDrine SULFATE INJ 50 MG/ML AMP IV PRN; -EpINEphrine INJ 1MG/ML AMP 1 MG/ML AMP ONE; -LACTATED RINGER'S 1000ML 500 ML IV SCH; -LIDOCAINE 4% OP SOLN DROP CHARGE ONE; -LIDOCAINE 4% OP SOLN DROP CHARGE OPL SCH; -LIDOCAINE HCL 1% MPF 2 ML VIAL ONE; -MIDAZOLAM HCL 1 MG/ML 2ML VIAL ONE; -MOXIFLOXACIN OPH SOLN PER DROP CHARGE ONE; -NEPA0.6D OP; -POVIDONE-IODINE OP SOLN 30 ML BTL ONE; -PRDFOPS OP; -PROPARACAINE 0.5% OP SOLN PER DROP CHARGE OPL SCH; -TOBRAMYCIN/DEXAMETHASONE OPH OINT PER APPLN CHARGE ONE
[2017-05-15 15:10] VITALS: TEMP 36.7; Ht 180.3 cm; Wt 127.1 kg
[2017-05-15] MEDS ORDERED: GELATIN SPONGE 12-7MM EXT STA (15:30)
--- NOTE | 2017-05-15 15:39 | EMERGENCY ROOM VISIT NOTE ---
ED Visit Note First contact with patient: 15:20 CHIEF COMPLAINT: right thumb skin avulsion HISTORY OF PRESENT ILLNESS: This 61-year-old left hand dominant male patient presents to the emergency department approximately 1 hour after cutting off the very tip of the right thumb while cutting ham. The bleeding has not stopped. The patient is currently on Eliquis. There is no weakness or numbness of the area. Tetanus shot is up-to-date. Full range of motion of the right thumb. The patient rates the pain as stinging and 3/10. He states he immediately washed the wound and applied a pressure dressing and ice. The bleeding has not stopped, so he came to the ED for evaluation. REVIEW OF SYSTEMS: A 6 system review of systems was completed with positives and pertinent negatives listed in the HPI. ALLERGIES: None MEDICATIONS: Eliquis, chlorthalidone, Tambocor, Zestril, Crestor, Zoloft PMH: Cataract surgery yesterday, atrial fibrillation SOCIAL HISTORY: The patient lives locally with family. He denies drug, alcohol , tobacco use. He is a retired [place] [employer] PHYSICAL EXAM: Vital Signs: Reviewed Nurse's notes, vital signs stable. GENERAL : This is a 61-year-old white male, in no acute distress, well-developed, well- nourished. SKIN: There is a 1 cm long avulsion laceration on the distal tip of the right thumb. It is superficial and the top layer of skin has been avulsed. There is no foreign material in the wound and it looks clean. There is active bleeding. No deep structures such as bone or significant blood vessels are seen in the base of the wound. Extension and flexion of the right thumb is full and strong. Sensation to pain and light touch is intact. EMERGENCY DEPARTMENT COURSE: I examined the patient. Verbal consent was obtained to perform the procedure. The right thumb was cleaned with saline and betadine. Gelfoam was applied to the avulsion laceration and the area was dressed with a pressure dressing. The bleeding stopped. The patient tolerated the procedure well. The patient was given a tetanus booster. The patient was discharged home in stable condition. I attest that I have personally reviewed the patient's current medication list. Patient was found to have normal blood pressure on screening and does not require follow-up. Differential diagnosis includes laceration, avulsion, fracture, open fracture, infection, and others DIAGNOSIS: Avulsion laceration of the right thumb. Problem List Medical Problems: (1) Depression Status: Chronic (2) Dyslipidemia Status: Chronic (3) Hypertension Status: Chronic (4) Leg edema Status: Resolved (5) Paroxysmal atrial fibrillation Status: Chronic (6) Partial small bowel obstruction Status: Resolved (7) PVCs (premature ventricular contractions) Status: Chronic (8) Severe obstructive sleep apnea Status: Chronic Surgical Problems: (1) History of total left knee replacement Status: Chronic Current/Historical Medications Scheduled Apixaban (Eliquis), 5 MG PO BID Chlorthalidone (Hygroton), 25 MG PO QAM Ciprofloxacin HCl (Ciprofloxacin HCl), 1 DROP OP QID Flecainide (Tambocor), 100 MG PO BID Lisinopril (Zestril), 40 MG PO QPM Nepafenac (Ilevro), 1 DROP OP DAILY Corinth-3 Fatty Acids (Corinth 3), 1 CAP PO BID Prednisolone Acetate (Prednisolone Acetate), 1 DROP OP QID Rosuvastatin Calcium (Crestor), 5 MG PO 3XWK Sertraline (Zoloft), 1.5 TAB PO QPM Allergies Coded Allergies: No Known Allergies (Verified , NONE, 05/15/17) Vital Signs Date Time Temp Pulse Resp B/P (MAP) Pulse Ox O2 Delivery O2 Flow Rate FiO2 05/15/17 16:42 84 132/81 99 05/15/17 15:10 36.7 94 20 152/81 98 Room Air Medications Administered Medications (Trade) Dose Ordered Sig/Chante Route Start Time Stop Time Status Last Admin Dose Admin Diphtheria/ Pertussis/Tetanus Vacc (Adacel Inj) 0.5 ml ONCE ONCE IM. 05/15/17 15:45 05/15/17 15:46 DC 05/15/17 15:47 0.5 ML Departure Information Impression Primary Impression: Avulsion of skin of right thumb without complication Dispostion Home / Self-Care Condition GOOD Referrals Maverick Khan M.D. (PCP) Patient Instructions ED Gelfoam Dressing, [facility] Additional Instructions Keep gelfoam dressing in place for 48 hrs, then remove. Soak foam in water until it falls off easily, then clean wound daily, cover with an antibiotic ointment and keep covered until it heals. Ibuprofen(Motrin, Advil) may be used for fever or pain. Use 600mg every six hours as needed. Take with food. Avoid using more than 2400mg in a 24 hour period. Do not use 2400mg per day for more than three consecutive days without physician direction. Prolonged inappropriate use can lead to stomach upset or ulcers. (AND/OR) Acetaminophen(Tylenol) may be used for fever or pain. Use 1000mg every six hours as needed. Avoid using more than 3000mg in a 24 hour period. Ice and elevate for swelling and pain. Keep covered when in sun until fully healed then SPF 50 or higher for one year. Vitamin E oil if desired two weeks after fully healed for reduction of scar. Return for any signs of infection (increasing redness, swelling, drainage, fever ). Follow-up with the PCP this week if necessary. Problem Qualifiers Primary Impression: Avulsion of skin of right thumb without complication Encounter type: initial encounter Qualified Codes: S61.001A - Unspecified open wound of right thumb without damage to nail, initial encounter
[2017-05-15] MEDS ORDERED: DIPHTHERIA/TETANUS/PERTUSSIS 0.5 ML SYR/VIAL IM. ONE (15:45)
[2017-05-15] MEDS ORDERED: CLXOPS3 OP (16:03)
[2017-05-15] MEDS ORDERED: NEPA0.6D OP (16:03)
[2017-05-15] MEDS ORDERED: PRDFOPS OP (16:03)
[2017-05-15 16:42] VITALS: BP 132/81; PULSE 84; O2SAT 99
== END 2017-05-15 16:43 | disposition home or self-care (01) ==
LOC: C.EDB 15:08 → C.EDD 16:43
DX: S61.001A Unspecified open wound of right thumb without damage to nail, initial encounter (principal); W26.0XXA Contact with knife, initial encounter; I48.91 Unspecified atrial fibrillation; F32.9 Major depressive disorder, single episode, unspecified; E78.5 Hyperlipidemia, unspecified; I10 Essential (primary) hypertension; I49.3 Ventricular premature depolarization; G47.33 Obstructive sleep apnea (adult) (pediatric); Z23 Encounter for immunization

== ENCOUNTER 2019-07-24 01:19 | Observation (INO) ==
[2019-07-24] MEDS ORDERED: HYDROmorphone INJ 1 MG/ML SYRINGE ONE (03:02)
[2019-07-24] MEDS ORDERED: ONDANSETRON INJ 2 MG/ML 2 ML VIAL ONE (03:02)
--- NOTE | 2019-07-24 03:15 | Emergency Department Note ---
History of Present Illness General Chief complaint: GI Assessment Stated complaint: STOMACH ISSUES-DISCOMFORT Source: patient Mode of arrival: ambulatory Limitations: no limitations History of Present Illness Maximum Pain Intensity: 4 This patient is a 64-year-old male who presents to the emergency department for evaluation of abdominal pain. 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 He states that he was able to eat a few pieces of pizza, however his pain gradually worsened. He describes this as a pressure sensation in the left upper abdomen and rates his discomfort a 5/10. Nothing makes the pain better or worse. He has tried some MiraLAX without relief. He reports a history of 2 prior small bowel obstructions, with the most recent being in August 2018. He states he has had extensive testing done to determine the cause of this and they have been unable to find anything. He de nies any other abdominal surgeries. He states that his obstructions have resolved with NG tube placement and conservative therapy. He does report that his current pain this feels similar to the pain he feels when he develops a bowel obstruction. He has been nauseous but has not vomited. He had a small bowel movement earlier in the afternoon. He reports that prior to the onset of pain, he had had a bowl of bran cereal and chicken with rice. He denies any fevers, urinary symptoms, cough or shortness of breath. Home Medications Home Medications Medication Instructions Recorded Confirmed Type flecainide 100 mg PO Q12H 12/07/17 07/24/19 History acetaminophen [Tylenol Extra 500 mg PO Q6H PRN 12/11/17 07/24/19 History Strength] lisinopril 40 mg tablet 40 mg PO DAILY #90 tab 01/10/19 07/24/19 Rx fluoxetine 20 mg capsule 30 mg PO DAILY cap 02/03/19 07/24/19 History rosuvastatin 5 mg tablet 5 mg PO 5XWK tab 02/03/19 07/24/19 History sildenafil 100 mg tablet 100 mg PO DAILY PRN #10 tab 02/03/19 07/24/19 Rx apixaban 5 mg tablet 5 mg PO BID #180 tab 06/02/19 07/24/19 Rx omega-3 acid ethyl esters 2 cap PO DAILY 07/24/19 07/24/19 History Allergies Allergy/AdvReac Type Severity Reaction Status Date / Time atorvastatin Allergy Myalgia Verified 03/11/19 15:06 pravastatin Allergy Verified 03/11/19 15:06 simvastatin Allergy Verified 03/11/19 15:06 Past Med/Surg History Medical History (Updated 07/24/19 @ 06:15 by Soledad Hayden PA-C) Acquired deviated nasal septum Anemia (Chronic) Angioma (Resolved) Bowel obstruction (Resolved) X 2 LAST TIME 08/2016 NO SURGICAL INTERVENTIONS Cerebral atherosclerosis (Chronic) Cervical radiculopathy (Chronic) Depression (Chronic) Dyslipidemia (Chronic) Dysplastic nevus (Chronic) Foot fracture (Resolved) Hepatitis C Hypertension (Chronic) Hypertrophy of nasal turbinates Inguinal hernia (Chronic) Irritable bowel syndrome (Chronic) On anticoagulant therapy (Chronic) Osteoarthritis (Chronic) Paroxysmal atrial fibrillation (Chronic) On Eliquis Paroxysmal ventricular tachycardia (Chronic) Peripheral neuropathy (Chronic) PVCs (premature ventricular contractions) (Chronic) Rosacea SBO (small bowel obstruction) (Acute) Severe obstructive sleep apnea (Chronic) INTERMEDIATE BIPAP Sexual dysfunction (Chronic) Spinal stenosis (Chronic) Vertigo (Resolved) Surgical History History of anesthesia reaction SLOW TO WAKE WITH KNEE ARTHROSCOPY, BUT OKAY WITH OTHER SURGERIES History of arthroscopy KNEE History of carpal tunnel release RIGHT AND LEFT History of cataract surgery RIGHT AND LEFT History of colonoscopy History of esophagogastroduodenoscopy (EGD) History of foot surgery screw placed after 5th MT fracture History of repair of left rotator cuff History of repair of right rotator cuff History of tonsillectomy Hx of total knee replacement LEFT Social History Preferred Language: Kazakh Communication Ability: Effective Visual Impairment: No Limitations Wine Steward/Stewardess Required: No Beliefs That Will Affect Care: None marital status: Current Living Situation: Spouse current occupational status: employed 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 Feels Safe at Home: Yes Smoking Status: Former smoker Tobacco Type: cigarettes ; Number of Years Since Quit: 30 ; Second Hand Exposure: No ; Hx Alcohol Use: Yes Alcohol Intake Frequency: Holidays/Special Occasions Hx Substance Use: No Review of Systems A total of 10 systems reviewed and were otherwise negative Physical Exam Vital Signs Vital Signs - 24 hr 07/24/19 01:26 07/24/19 02:39 07/24/19 03:00 Temperature 36.7 C Temperature Source Oral Pulse Rate 72 66 62 Pulse Rate from SpO2 Sensor 66 63 Respiratory Rate 18 22 13 Respiratory Effort / Characteristics Non-Labored Spontaneous Respiratory Depth Normal Respiratory Pattern Regular Blood Pressure 175/100 H 154/91 H 139/81 Blood Pressure Mean 125 117 94 Blood Pressure Position Sitting Pulse Oximetry 96 94 Oxygen Delivery Method Room Air Room Air Sepsis Recent Fever Within 48 Hours No Sepsis New/Unexplained Change in Mental Status No Sepsis Action Taken by Nursing No Action Required 07/24/19 03:30 07/24/19 04:00 07/24/19 04:30 Temperature Temperature Source Pulse Rate 59 L 58 L 59 L Pulse Rate from SpO2 Sensor 59 L 58 L 59 L Respiratory Rate 20 18 17 Respiratory Effort / Characteristics Respiratory Depth Respiratory Pattern Blood Pressure 142/64 H 128/67 133/66 Blood Pressure Mean 87 82 89 Blood Pressure Position Pulse Oximetry 97 93 92 Oxygen Delivery Method Room Air Room Air Room Air Sepsis Recent Fever Within 48 Hours Sepsis New/Unexplained Change in Mental Status Sepsis Action Taken by Nursing 07/24/19 05:01 07/24/19 05:30 Temperature Temperature Source Pulse Rate 63 57 L Pulse Rate from SpO2 Sensor 64 57 L Respiratory Rate 24 15 Respiratory Effort / Characteristics Respiratory Depth Respiratory Pattern Blood Pressure 160/93 H 153/81 H Blood Pressure Mean 113 106 Blood Pressure Position Pulse Oximetry 92 95 Oxygen Delivery Method Room Air Room Air Sepsis Recent Fever Within 48 Hours Sepsis New/Unexplained Change in Mental Status Sepsis Action Taken by Nursing VITALS: Vitals are noted on the nurse's note and reviewed by myself. Vital signs stable. GENERAL: This is a 64-year-old male, in no acute distress, nondiaphoretic, well- developed well-nourished. SKIN: The skin was without rashes. EARS: External auditory canals clear, tympanic membranes pearly johnson without erythema or effusion bilaterally. EYES: Pupils equal round and reactive to light and accommodation. No scleral icterus. NOSE: Patent, turbinates without inflammation or discharge. MOUTH: Mucous membranes moist. Tonsils are not enlarged. Pharynx without erythema or exudate. NECK: Supple without nuchal rigidity. No lymphadenopathy. HEART: Regular rate and rhythm without murmurs gallops or rubs. LUNGS: Clear to auscultation bilaterally without wheezes, rales or rhonchi. No retractions or accessory muscle use. ABDOMEN: Positive bowel sounds x 4. Obese abdomen. There is moderate tenderness to palpation in the left upper to mid abdomen. No guarding or rebound tenderness. NEURO: Patient was alert and oriented to person place and time. Course Reevaluation(s) Reevaluation #1: Patient was reevaluated and informed of all findings. He is feeling much better after the pain medication. Reevaluation #2: NG tube was placed by nursing staff. Consultations Consultation #1: [id number]: [facility] [place] hospitalist - Dr. Woods Administered Medications Ioversol (Optiray 320 100ml) 93 ml IV ONCE PRN PRN Reason: Interaction Checking Stop: 07/28/19 04:26 Last Admin: 07/24/19 04:27 Dose: 93 ml Documented by: [id number] Discontinued Medications Hydromorphone HCl (Dilaudid) Confirm Administered Dose 1 mg .ROUTE .STK-MED ONE Stop: 07/24/19 03:03 Last Admin: 07/24/19 03:10 Dose: 1 mg Documented by: [id number] Ondansetron HCl (Zofran) Confirm Administered Dose 4 mg .ROUTE .STK-MED ONE Stop: 07/24/19 03:03 Last Admin: 07/24/19 03:10 Dose: 4 mg Documented by: [id number] Medical Decision Making Differential Diagnosis Differential diagnosis includes appendicitis, testicular torsion, infections, diverticulitis, UTI, obstruction, mesenteric ischemia, aortic pathology, inflammatory bowel disease, renal colic, PUD, pancreatitis, biliary pathology, hernia, volvulus, constipation, as well as other pathologies. Medical Records Attestation: I reviewed the patient's medical records. Home Medications Current Medication List: was personally reviewed by me Laboratory Data Attestation: I reviewed the patient's lab results. Result diagrams: 07/24/19 02:05 07/24/19 02:05 Lab Results 07/24/19 07/24/19 07/24/19 Range/Units 02:05 02:05 02:05 WBC 7.89 (4.8-10.8) K/uL RBC 4.72 (4.7-6.1) M/uL Hgb 14.8 (14.0-18.0) g/dL Hct 42.3 (42-52) % MCV 89.6 (80-100) fL MCH 31.4 (25-34) pg MCHC 35.0 (32-36) g/dL RDW Std Deviation 43.6 (36.4-46.3) fL RDW Coeff of Bill 13.2 (11.5-14.5) % Plt Count 195 (130-400) K/uL MPV 9.7 (7.4-10.4) fL Immature Gran % (Auto) 0.3 % Neut % (Auto) 73.0 % Lymph % (Auto) 17.7 % [place] % (Auto) 6.6 % Eos % (Auto) 2.0 % Baso % (Auto) 0.4 % Immature Gran # (Auto) 0.02 (0.00-0.02) K/uL Neut # (Auto) 5.76 (1.4-6.5) K/uL Lymph # (Auto) 1.40 (1.2-3.4) K/uL [place] # (Auto) 0.52 (0.11-0.59) K/uL Eos # (Auto) 0.16 (0-0.5) K/uL Baso # (Auto) 0.03 (0-0.2) K/uL Sodium 139 (136-145) mmol/L Potassium 3.9 (3.5-5.1) mmol/L Chloride 108 H (98-107) mmol/L Carbon Dioxide 28 (21-32) mmol/L Anion Gap 3.0 (3-11) BUN 19 H (7-18) mg/dl Creatinine 0.97 (0.6-1.4) mg/dl Est Cr Clr Drug Dosing 106.0 ml/min Est GFR ( Amer) 95.9 Est GFR (Non-Af Amer) 82.7 BUN/Creatinine Ratio 19.4 (10-20) Glucose 110 H (70-99) mg/dl Calcium 8.9 (8.5-10.1) mg/dl Total Bilirubin 0.7 (0.2-1) mg/dl AST 18 (15-37) U/L ALT 27 (12-78) U/L Alkaline Phosphatase 54 (45-117) U/L Total Protein 7.3 (6.4-8.2) gm/dl Albumin 3.8 (3.4-5.0) gm/dl Globulin 3.5 (2.5-4.0) gm/dl Albumin/Globulin Ratio 1.1 (0.9-2) Lipase 88 (73-393) U/L Urine Color Yellow Urine Appearance Clear (Clear) Urine pH 5.0 (4.5-7.5) Ur Specific [place] 1.019 (1.000-1.030) Urine Protein Negative (Negative) Urine Glucose (UA) Negative (Negative) Urine Ketones Negative (Negative) Urine Blood Negative (Negative) Urine Nitrite Negative (Negative) Urine Bilirubin Negative (Negative) Urine Urobilinogen Negative (Negative) Ur Leukocyte Esterase Negative (Negative) Urine WBC (Auto) 1-5 (0-5) /hpf Urine RBC (Auto) 0-4 (0-4) /hpf U Hyaline Cast (Auto) 1-5 (0-5) /lpf U Epithel Cells (Auto) 0-5 (0-5) /lpf Urine Bacteria (Auto) Negative (Negative) Imaging Data Attestation: I personally reviewed and interpreted this imaging study as fo llows: Radiologist's Impression: CT ABDOMEN & PELVIS With Contrast: Multiple fluid distended loops of small bowel in the abdomen and pelvis with a transition point identified in the anterior lateral right abdomen (series 2; images 48-53). Findings are most consistent with a small bowel obstruction. No bowel perforation. Minimal free fluid adjacent to the fluid distended loops of small bowel in the right lower quadrant are presumed reactive. No loculated abscess. The liver, gallbladder, pancreas, spleen, adrenal glands and kidneys demonstrate no significant acute abnormality. Incidental appendix in the right lower quadrant. The bladder is distended without significant wall abnormalities or calcifications. No acute osseous or significant overlying soft tissue abnormality. Radiologist: Sohan Damon MD Blood Pressure Blood Pressure Findings: Normal blood pressure Blood Pressure Disposition: did not require urgent referral MDM Narrative The patient is a 64-year-old male who presents today complaining of abdominal pain which is consistent with his prior bowel obstructions. Labs revealed no le ukocytosis, anemia or concerning electrolyte abnormalities. Urinalysis was not suggestive of infection. CT of the abdomen/pelvis was performed and shows a small bowel obstruction. NG tube was placed and hospitalist service was consulted to evaluate the patient for further care. Impression & Plan SBO (small bowel obstruction) Discharge Plan Visit Data Chief Complaint: GI Assessment Stated Complaint: STOMACH ISSUES-DISCOMFORT ED Provider: Suzan Kiran ED Midlevel Provider: Soledad Hayden Discharge Problem: SBO (small bowel obstruction) Discharge Instructions Interventions: ED Discharge Assessment Last Done: 07/24/19 05:57 Forms Stand Alone Forms: [facility] [place] [employer] Prescriptions Prescriptions: No Action lisinopril 40 mg tablet 40 mg PO DAILY Qty: 90 RF: 3 Eliquis 5 mg tablet 5 mg PO BID Qty: 180 RF: 3 fluoxetine [Prozac] 20 mg capsule 30 mg PO DAILY RF: 0 rosuvastatin [Crestor] 5 mg tablet 5 mg PO 5XWK RF: 0 sildenafil [Viagra] 100 mg tablet 100 mg PO DAILY PRN (Reason: sexual activity) Qty: 10 RF: 0 flecainide 100 mg Tablet 100 mg PO Q12H RF: 0 acetaminophen [Tylenol Extra Strength] 500 mg Tablet 500 mg PO Q6H PRN (Reason: Pain, Moderate) RF: 0 omega-3 acid ethyl esters 1 gram capsule 2 cap PO DAILY RF: 0 Referrals Referrals: Di Jackman DO [Primary Care Provider] -
[2019-07-24 03:21] LABS: Appearance Urine Clear (Clear); Bacteria Urine Automated Negative (Negative); Bilirubin Urine Negative (Negative); Blood Urine Negative (Negative); Color Urine Yellow; Epithelial Cell Urine Auto 0-5 /lpf (0-5); Glucose Urine UA Negative (Negative); Ketones Urine Negative (Negative); Leukocyte Esterase Urine Negative (Negative); Nitrite Urine Negative (Negative); Protein Urine Negative (Negative); RBC Urine Automated 0-4 /hpf (0-4); Specific Gravity Urine 1.019 (1.000-1.030); Urobilinogen Urine Negative (Negative)
[2019-07-24 03:27] LABS: Albumin Globulin Ratio 1.1 (0.9-2); Albumin Level 3.8 gm/dl (3.4-5.0); BUN Creatinine Ratio 19.4 (10-20); Bilirubin,Total 0.7 mg/dl (0.2-1); Calcium 8.9 mg/dl (8.5-10.1); Est GFR (African American) 95.9; Est GFR (Non-African American) 82.7; Globulin 3.5 gm/dl (2.5-4.0); Potassium 3.9 mmol/L (3.5-5.1); Total Protein 7.3 gm/dl (6.4-8.2)
[2019-07-24 03:35] LABS: Basophils # (auto) 0.03 K/uL (0-0.2); Basophils % (auto) 0.4 %; Eosinophils # (auto) 0.16 K/uL (0-0.5); Hematocrit (blood only) 42.3 % (42-52); Hemoglobin 14.8 g/dL (14.0-18.0); Immature Granulocytes # (auto) 0.02 K/uL (0.00-0.02); Immature Granulocytes % (auto) 0.3 %; Lymphocytes % (auto) 17.7 %; Mean Corpuscular Hemoglobin 31.4 pg (25-34); Mean Corpuscular Volume 89.6 fL (80-100); Mean Platelet Volume 9.7 fL (7.4-10.4); Monocytes # (auto) 0.52 K/uL (0.11-0.59); Monocytes % (auto) 6.6 %; Neutrophils # (auto) 5.76 K/uL (1.4-6.5); Platelet Count 195 K/uL (130-400); RDW Coefficient of Variation 13.2 % (11.5-14.5); RDW Standard Deviation 43.6 fL (36.4-46.3); Red Blood Count 4.72 M/uL (4.7-6.1); White Blood Count 7.89 K/uL (4.8-10.8)
[2019-07-24] MEDS ORDERED: IOVERSOL 100ml IV PRN (04:27)
--- NOTE | 2019-07-24 05:52 | History & Physical Report ---
Date of Service July 24, 2019 Assessment & Plan (1) SBO (small bowel obstruction): Pawel is a 64-year-old male with a past medical history of anemia, small bowel obstruction, dyslipidemia, hypertension, IBS, paroxysmal A. fib/paroxysmal SVT, rosacea, obstructive sleep apnea, and no history of prior abdominal surgery who presents with 1 day of abdominal pain and distention suspicious for small bowel obstruction. Small bowel obstruction CT abdomen/pelvis shows small bowel obstruction with anterior right abdominal transition point, multiple dilated loops of small bowel - Pt with large amount of rice and fiber intake prior to symptom onset Patient's third episode, has had extensive work-up at both [facility] and in [place] with no clear etiology identified. Family history suggestive of UC/Crohn's. No definitive diagnosis at colonoscopy a year ago. N.p.o., NGT to low intermittent suction IVFM half-normal saline at 100 cc/h Surgery consulted Pending records from [facility], would benefit from further outpatient follow-up after resolution Received 1 mg hydromorphone for pain in emergency department with adequate pain relief. Recommend minimization of narcotics to prevent exacerbation of SBO. BMP daily Primary uncomplicated small bowel obstruction without secondary signs of leukocytosis or fever, defer antibiotic treatment at this time. Urinary retention Mild bladder distention noted on CT,? Mechanical obstruction with SBO versus vagus nerve pressure in the setting of SBO Bladder scan, straight cath for residual greater than 250. Hypertension Lisinopril 40 mg daily held Paroxysmal A. fib No A. fib after 1 month monitor observation while on flecainide On apixaban therapy prior to admission Flecainide and apixaban held in the setting of n.p.o. with NGT If not advancing to be able to tolerate p.o. 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 as above IVFM: Half NSS@100 cc/h Diet: N.p.o. Disposition: Medical/surgical CODE STATUS: Full code (2) Prediabetes: (3) Spinal stenosis: (4) Paroxysmal ventricular tachycardia: (5) Osteoarthritis: (6) Irritable bowel syndrome: (7) Anemia: (8) Severe obstructive sleep apnea: (9) Hypertension: (10) Paroxysmal atrial fibrillation: History of Present Illness Chief Complaint: Abdominal pain Primary Care Provider: Di Jackman DO Armas is a 64-year-old male with a past medical history of anemia, small bowel obstruction, dyslipidemia, hypertension, IBS, paroxysmal A. fib/paroxysmal SVT, rosacea, obstructive sleep apnea, and no history of prior abdominal surgery who presents with 1 day of abdominal pain and distention suspicious for small bowel obstruction. Patient reports that he has had 2 episodes of small bowel obstruction in the past. Starting last October he started taking MiraLAX daily to twice daily and typically has soft stools without melena or blood once to twice per day. His last bowel movement was yesterday at around 7:30 PM. Yesterday around 7 PM he was going to a pizza shop when his stomach started to feel "funny ". He knows that food increased nausea and abdominal distention. He felt like this was similar to his small bowel obstructions in the past. He continued to be nauseous but did not have any episodes of vomiting. He developed abdominal distention and left abdominal pain with constipation. He denies other symptoms. He has not vomited. He reports that his stools are normally very skinny and sometimes flat "like [place]". He reports that he had a colonoscopy with Valerie last October at [facility]. He reports that at that time he was told there was an area of slight concern, but does not know further details. He was recommended for 3-year colonoscopy follow-up. He has had a colonoscopy and EGD neither of which showed evidence of Crohn's, but which he has a strong family history for and was recommended to have continued follow-up. Medications: Reviewed in EMR Medical history: Reviewed in EMR Surgical history: Reviewed in EMR, of note no abdominal surgery. Family history: History of ulcerative colitis in his sister, spastic colon in his brother, and Crohn's disease in a maternal cousin. Allergies: Reviewed in EMR Social: He lives at home with his who would be his surrogate decision maker. He does not drink alcohol, was a former light smoker 40 years ago, does not use recreational drugs. CODE STATUS: Full code Allergies Allergy/AdvReac Type Severity Reaction Status Date / Time atorvastatin Allergy Myalgia Verified 03/11/19 15:06 pravastatin Allergy Verified 03/11/19 15:06 simvastatin Allergy Verified 03/11/19 15:06 Home Medications Home Medications Medication Instructions Recorded Confirmed Type flecainide 100 mg PO Q12H 12/07/17 07/24/19 History acetaminophen [Tylenol Extra 500 mg PO Q6H PRN 12/11/17 07/24/19 History Strength] lisinopril 40 mg tablet 40 mg PO DAILY #90 tab 01/10/19 07/24/19 Rx fluoxetine 20 mg capsule 30 mg PO DAILY cap 02/03/19 07/24/19 History rosuvastatin 5 mg tablet 5 mg PO 5XWK tab 02/03/19 07/24/19 History sildenafil 100 mg tablet 100 mg PO DAILY PRN #10 tab 02/03/19 07/24/19 Rx apixaban 5 mg tablet 5 mg PO BID #180 tab 06/02/19 07/24/19 Rx omega-3 acid ethyl esters 2 cap PO DAILY 07/24/19 07/24/19 History Past Med/Surg History Medical History (Updated 07/24/19 @ 12:45 by Sohan Gil MD) Acquired deviated nasal septum Anemia (Chronic) Bowel obstruction (Resolved) X 2 LAST TIME 08/2016 NO SURGICAL INTERVENTIONS Cerebral atherosclerosis (Chronic) Cervical radiculopathy (Chronic) Depression (Chronic) Dyslipidemia (Chronic) Foot fracture (Resolved) Hepatitis C Hypertension (Chronic) Hypertrophy of nasal turbinates Inguinal hernia (Chronic) Irritable bowel syndrome (Chronic) On anticoagulant therapy (Chronic) Osteoarthritis (Chronic) Paroxysmal atrial fibrillation (Chronic) On Eliquis Paroxysmal ventricular tachycardia (Chronic) Peripheral neuropathy (Chronic) PVCs (premature ventricular contractions) (Chronic) Rosacea SBO (small bowel obstruction) (Acute) Severe obstructive sleep apnea (Chronic) INTERMEDIATE BIPAP Sexual dysfunction (Chronic) Spinal stenosis (Chronic) Vertigo (Resolved) Surgical History History of anesthesia reaction SLOW TO WAKE WITH KNEE ARTHROSCOPY, BUT OKAY WITH OTHER SURGERIES History of arthroscopy KNEE History of carpal tunnel release RIGHT AND LEFT History of cataract surgery RIGHT AND LEFT History of colonoscopy History of esophagogastroduodenoscopy (EGD) History of foot surgery screw placed after 5th MT fracture History of repair of left rotator cuff History of repair of right rotator cuff History of tonsillectomy Hx of total knee replacement LEFT Social History Preferred Language: Frisian Communication Ability: Effective Visual Impairment: No Limitations Superintendent Transmission Required: No Beliefs That Will Affect Care: None marital status: Current Living Situation: Spouse current occupational status: employed 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 Feels Safe at Home: Yes Smoking Status: Former smoker Tobacco Type: cigarettes ; Number of Years Since Quit: 30 ; Second Hand Exposure: No ; Hx Alcohol Use: No Hx Substance Use: No Review of Systems Review of Systems: Constitutional: Denies fever, chills, malaise Eyes: Denies double vision, vision change, eye pain ENT: Denies ear pain, sore throat, sinus pain Cardiovascular: Denies Chest pain, chest pressure, palpitations, extremity swelling Respiratory: Denies shortness of breath, cough, sputum production, difficulty breathing Gastrointestinal: See HPI Genitourinary: Denies pain with urination, urinary urgency, urinary frequency Musculoskeletal: Denies weakness, new muscle aches/pain, joint aches/pain Integumentary:Denies new rash, lesions, bruising Neurological: Denies new headache, numbness, tingling, focal weakness Physical Exam Physical Exam: General: A&Ox3. Cooperative. Appears uncomfortable but nontoxic. HEENT: Atraumatic, normocephalic. No facial asymmetry. Mucous membranes tacky. Pulm: CTAB A&P. -wheezes, -rales, -rhonchi. Symmetrical chest rise. No increase work of breathing. No respiratory distress. Cardiac: RRR, -mrg. Radial pulses intact and symmetrical. Abdominal: BS present but decreased. Softly distended, focally tender in left lower quadrant. Alternating areas of tympany and dullness to percussion. Nonrigid. No rebound tenderness. Extremities: Moving all extremities equally, sensation intact in distal upper and lower extremities without asymmetry. Radial pulses intact and symmetrical, PT pulses intact and symmetrical. Results & Data Results & Data ([facility]) Vital Signs (Past 12 Hours) Vital Signs Temp Pulse Resp BP Pulse Ox 07/24/19 05:30 57 L 15 153/81 H 95 07/24/19 05:01 63 24 160/93 H 92 07/24/19 04:30 59 L 17 133/66 92 07/24/19 04:00 58 L 18 128/67 93 07/24/19 03:30 59 L 20 142/64 H 97 07/24/19 03:00 62 13 139/81 94 07/24/19 02:39 66 22 154/91 H 07/24/19 01:26 36.7 C 72 18 175/100 H 96 Code Status & VTE Plan VTE Prophylaxis Plan VTE Prophylaxis will be ordered: Yes Supervising Physician Co-Signing Physician Notes Attending addendum: I have physically seen this patient, have supervised the medical residents activities, and agree with the H&P unless as otherwise noted. Assessment and Plan: Small bowel obstruction- Multiple recurrences, none of which have required surgery. Transition point noted in anterior right abdominal quadrant. NPO IV fluids NG tube to low intermittent suction Zofran 4 mg IV every 6 hours PRN Zosyn 3.375 mg IV every 8 hours Famotidine 20 mg IV every 12 hours Acetaminophen 1 g IV every 8 hours PRN mild pain or temperature. Toradol 30 mg IV every 6 hours PRN moderate pain. Paroxysmal atrial fibrillation Hold apixaban and flecainide for now. Monitor on telemetry. Remainder of orders and notations as noted Resident Activity Tracking Resident Involvement: Resident Care Provided Care Provided: Adult Hospital Medicine
--- NOTE | 2019-07-24 06:55 | CT Scan Report ---
CT abd pelvis IV con only CLINICAL HISTORY: Generalized abdominal pain. History of prior bowel obstructions. COMPARISON STUDY: March 15, 2018 TECHNIQUE: The patient was scanned in a dynamic helical fashion during intravenous administration of 93 cc of Optiray 320 A dose lowering technique was utilized adhering to the principles of ALARA. CT DOSE: FINDINGS: Lower chest: There are mild basilar atelectatic changes. Liver: The contrast-enhanced liver is normal in size, contour, and attenuation. There is no intrahepa tic biliary ductal dilatation. The hepatic veins and portal veins are patent. Gallbladder: Unremarkable. Spleen: Normal in size and attenuation. Pancreas: Unremarkable. Adrenal glands: There is minor adrenal gland thickening similar to the prior study. Kidneys: There is symmetric renal cortical enhancement. The kidneys are normal in size without hydron ephrosis. Bowel: The appendix appears normal. There is no evidence of acute diverticulitis. There are multiple fluid-filled small bowel loops measuring up to 33 mm in diameter. There is a small bowel feces sign. The terminal ileum is of normal caliber. The findings suggest an early or low-grade partial small bow el obstruction. There is no pneumatosis. There is no portal venous gas. Peritoneum: There is no intraperitoneal free air. There is trace right lower quadrant fluid adjacent to small bowel loops.. There are bilateral fat-containing inguinal hernias versus lipomatous inguinal canals. Vasculature: The abdominal aorta is normal in course and caliber. Adenopathy: None. Pelvic viscera: The bladder, and pelvic viscera are unremarkable. Skeletal structures: No destructive osseous lesions are seen. IMPRESSION: 1. Mildly dilated fluid-filled small bowel loops with a small bowel feces sign. The terminal ileum is of normal caliber. The findings are consistent with an early or low-grade partial small bowel obstru ction. There is no pneumatosis. There is no portal venous gas. ACT 112: Negative or not required by law. Electronically signed by: Lars Jose M.D. 07/24/2019 6:54 AM
--- NOTE | 2019-07-24 07:09 | XRay Report ---
XR KUB/Abdomen 1 view CLINICAL HISTORY: Evaluation for nasogastric tube placement COMPARISON STUDY: 05/28/2018, CT scan dated 07/24/2019 FINDINGS: There is evidence for contrast the renal collecting system secondary to a recent CT scan. A nasogastric tube has been placed, the tip of which is located within the proximal stomach IMPRESSION: The nasogastric tube is positioned with its tip in the stomach. ACT 112: Negative or not required by law. Electronically signed by: Lars Jose M.D. 07/24/2019 7:08 AM
[2019-07-24] MEDS: SODIUM CHLORIDE 0.45 % 1,000 ML IV SCH ×2 (09:01→19:35)
--- NOTE | 2019-07-24 10:37 | Surgery Consultation ---
Date of Consultation July 24, 2019 Assessment & Plan (1) SBO (small bowel obstruction): This patient had abdominal pain with nausea and CT consistent with small bowel obstruction. He has had this in the past and is resolved spontaneously on each occasion. A work-up has not been revealing. This episode seems to be resolving more quickly. He no longer has any pain and he has had a liquid bowel movement. I would continue with conservative measures. There is no evidence of peritonitis. There is no indication for surgical intervention at this time. History of Present Illness Reason for Consultation: Small bowel obstruction Requesting Physician: Elbert Baig DO Attending Physician: Elbert Baig DO History of Present Illness I have been asked by Dr. Baig to see this 64-year-old male who presented to the emergency room last night with a complaint of abdominal pain. He states that he was well yesterday until about 7:00 when he felt a "funny feeling" in his abdomen. He through the night developed discomfort that then would increase in intensity and became more frequent. He has had the symptoms 4-5 times in the past. Each time he was diagnosed with a small bowel obstruction. Each time it resolved after 2 to 3 days with an NG tube. He had nausea but no vomiting. He has had no fever or chills. He has occasional issues with constipation but that has not been a problem for him recently. He has no dysuria or hematuria. Each of the previous episodes lasted about 2 to 3 days. He thinks this is different and that the pain is already resolved and he had a bowel movement that was liquid this morning. That is the course that the other episodes have taken where he will have diarrheal stool followed by resolution of the pain and resolution of the obstruction. This episode he thinks is different than the previous and that the pain has already resolved and he had a diarrheal bowel movement this morning. He had a an extensive work-up for this. He has never had previous abdominal surgery. He underwent a colonoscopy and an upper endoscopy. The other test that he describes sounds like possibly a small bowel follow-through and an MRE. The only abnormal finding was some inflammation near the ileocecal valve seen during colonoscopy. Allergies Allergy/AdvReac Type Severity Reaction Status Date / Time atorvastatin Allergy Myalgia Verified 03/11/19 15:06 pravastatin Allergy Verified 03/11/19 15:06 simvastatin Allergy Verified 03/11/19 15:06 Home Medications Home Medications Medication Instructions Recorded Confirmed Type flecainide 100 mg PO Q12H 12/07/17 07/24/19 History acetaminophen [Tylenol Extra 500 mg PO Q6H PRN 12/11/17 07/24/19 History Strength] lisinopril 40 mg tablet 40 mg PO DAILY #90 tab 01/10/19 07/24/19 Rx fluoxetine 20 mg capsule 30 mg PO DAILY cap 02/03/19 07/24/19 History rosuvastatin 5 mg tablet 5 mg PO 5XWK tab 02/03/19 07/24/19 History sildenafil 100 mg tablet 100 mg PO DAILY PRN #10 tab 02/03/19 07/24/19 Rx apixaban 5 mg tablet 5 mg PO BID #180 tab 06/02/19 07/24/19 Rx omega-3 acid ethyl esters 2 cap PO DAILY 07/24/19 07/24/19 History Patient History Medical History (Updated 07/24/19 @ 06:15 by Soledad Hayden PA-C) Acquired deviated nasal septum Anemia (Chronic) Angioma (Resolved) Bowel obstruction (Resolved) X 2 LAST TIME 08/2016 NO SURGICAL INTERVENTIONS Cerebral atherosclerosis (Chronic) Cervical radiculopathy (Chronic) Depression (Chronic) Dyslipidemia (Chronic) Dysplastic nevus (Chronic) Foot fracture (Resolved) Hepatitis C Hypertension (Chronic) Hypertrophy of nasal turbinates Inguinal hernia (Chronic) Irritable bowel syndrome (Chronic) On anticoagulant therapy (Chronic) Osteoarthritis (Chronic) Paroxysmal atrial fibrillation (Chronic) On Eliquis Paroxysmal ventricular tachycardia (Chronic) Peripheral neuropathy (Chronic) PVCs (premature ventricular contractions) (Chronic) Rosacea SBO (small bowel obstruction) (Acute) Severe obstructive sleep apnea (Chronic) INTERMEDIATE BIPAP Sexual dysfunction (Chronic) Spinal stenosis (Chronic) Vertigo (Resolved) Surgical History History of anesthesia reaction SLOW TO WAKE WITH KNEE ARTHROSCOPY, BUT OKAY WITH OTHER SURGERIES History of arthroscopy KNEE History of carpal tunnel release RIGHT AND LEFT History of cataract surgery RIGHT AND LEFT History of colonoscopy History of esophagogastroduodenoscopy (EGD) History of foot surgery screw placed after 5th MT fracture History of repair of left rotator cuff History of repair of right rotator cuff History of tonsillectomy Hx of total knee replacement LEFT Social History Preferred Language: Mohawk Communication Ability: Effective Visual Impairment: No Limitations 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: No Beliefs That Will Affect Care: None marital status: Current Living Situation: Spouse current occupational status: employed current occupation: [employer] Other Information That Helps Us Care for You: No Feels Safe at Home: Yes Safety Concerns: Feels Safe At This Time Smoking Status: Former smoker Tobacco Type: cigarettes ; Do You Dip or Chew Tobacco: No ; Smoking End Date: 1976 ; Number of Years Since Quit: 30 ; Second Hand Exposure: No ; Tobacco Cessation Education Requested by Patient: No Hx Alcohol Use: No Hx Substance Use: No Review of Systems Review of Systems: All systems reviewed & are unremarkable except as noted in HPI & below Physical Exam Constitutional: no acute distress Neck: trachea midline Respiratory: normal respiratory effort, lungs clear to auscultation Cardiovascular: Rate/Rhythm: regular rate and regular rhythm Gastrointestinal (Abdomen): Inspection/Auscultation: + abdomen distended (Mild) and normal bowel sounds Percussion/Palpation: abdomen soft; abdomen nontender Skin: no rashes, warm and dry Lymphatic: no cervical lymphadenopathy Results & Data Vital Signs (Past 12 Hours) Vital Signs Temp Pulse Pulse Resp BP BP Pulse Ox 07/24/19 07:00 37.0 C 56 L 18 137/83 91 07/24/19 05:30 57 L 15 153/81 H 95 07/24/19 05:01 63 24 160/93 H 92 07/24/19 04:30 59 L 17 133/66 92 07/24/19 04:00 58 L 18 128/67 93 07/24/19 03:30 59 L 20 142/64 H 97 07/24/19 03:00 62 13 139/81 94 07/24/19 02:39 66 22 154/91 H 07/24/19 01:26 36.7 C 72 18 175/100 H 96 Laboratory Results 07/24/19 07/24/19 07/24/19 Range/Units 02:05 02:05 02:05 WBC 7.89 (4.8-10.8) K/uL RBC 4.72 (4.7-6.1) M/uL Hgb 14.8 (14.0-18.0) g/dL Hct 42.3 (42-52) % MCV 89.6 (80-100) fL MCH 31.4 (25-34) pg MCHC 35.0 (32-36) g/dL RDW Std Deviation 43.6 (36.4-46.3) fL RDW Coeff of Bill 13.2 (11.5-14.5) % Plt Count 195 (130-400) K/uL MPV 9.7 (7.4-10.4) fL Immature Gran % (Auto) 0.3 % Neut % (Auto) 73.0 % Lymph % (Auto) 17.7 % Wood % (Auto) 6.6 % Eos % (Auto) 2.0 % Baso % (Auto) 0.4 % Immature Gran # (Auto) 0.02 (0.00-0.02) K/uL Neut # (Auto) 5.76 (1.4-6.5) K/uL Lymph # (Auto) 1.40 (1.2-3.4) K/uL Wood # (Auto) 0.52 (0.11-0.59) K/uL Eos # (Auto) 0.16 (0-0.5) K/uL Baso # (Auto) 0.03 (0-0.2) K/uL Sodium 139 (136-145) mmol/L Potassium 3.9 (3.5-5.1) mmol/L Chloride 108 H (98-107) mmol/L Carbon Dioxide 28 (21-32) mmol/L Anion Gap 3.0 (3-11) BUN 19 H (7-18) mg/dl Creatinine 0.97 (0.6-1.4) mg/dl Est Cr Clr Drug Dosing 106.0 ml/min Est GFR ( Amer) 95.9 Est GFR (Non-Af Amer) 82.7 BUN/Creatinine Ratio 19.4 (10-20) Glucose 110 H (70-99) mg/dl Calcium 8.9 (8.5-10.1) mg/dl Total Bilirubin 0.7 (0.2-1) mg/dl AST 18 (15-37) U/L ALT 27 (12-78) U/L Alkaline Phosphatase 54 (45-117) U/L Total Protein 7.3 (6.4-8.2) gm/dl Albumin 3.8 (3.4-5.0) gm/dl Globulin 3.5 (2.5-4.0) gm/dl Albumin/Globulin Ratio 1.1 (0.9-2) Lipase 88 (73-393) U/L Urine Color Yellow Urine Appearance Clear (Clear) Urine pH 5.0 (4.5-7.5) Ur Specific [place] 1.019 (1.000-1.030) Urine Protein Negative (Negative) Urine Glucose (UA) Negative (Negative) Urine Ketones Negative (Negative) Urine Blood Negative (Negative) Urine Nitrite Negative (Negative) Urine Bilirubin Negative (Negative) Urine Urobilinogen Negative (Negative) Ur Leukocyte Esterase Negative (Negative) Urine WBC (Auto) 1-5 (0-5) /hpf Urine RBC (Auto) 0-4 (0-4) /hpf U Hyaline Cast (Auto) 1-5 (0-5) /lpf U Epithel Cells (Auto) 0-5 (0-5) /lpf Urine Bacteria (Auto) Negative (Negative) Diagnostic Findings CT abd pelvis IV con only CLINICAL HISTORY: Generalized abdominal pain. History of prior bowel obstructions. COMPARISON STUDY: March 15, 2018 TECHNIQUE: The patient was scanned in a dynamic helical fashion during intravenous administration of 93 cc of Optiray 320 A dose lowering technique was utilized adhering to the principles of ALARA. CT DOSE: FINDINGS: Lower chest: There are mild basilar atelectatic changes. Liver: The contrast-enhanced liver is normal in size, contour, and attenuation. There is no intrahepatic biliary ductal dilatation. The hepatic veins and portal veins are patent. Gallbladder: Unremarkable. Spleen: Normal in size and attenuation. Pancreas: Unremarkable. Adrenal glands: There is minor adrenal gland thickening similar to the prior study. Kidneys: There is symmetric renal cortical enhancement. The kidneys are normal in size without hydronephrosis. Bowel: The appendix appears normal. There is no evidence of acute diver ticulitis. There are multiple fluid-filled small bowel loops measuring up to 33 mm in diameter. There is a small bowel feces sign. The terminal ileum is of normal caliber. The findings suggest an early or low-grade partial small bowel obstruction. There is no pneumatosis. There is no portal venous gas. Peritoneum: There is no intraperitoneal free air. There is trace right lower quadrant fluid adjacent to small bowel loops.. There are bilateral fat- containing inguinal hernias versus lipomatous inguinal canals. Vasculature: The abdominal aorta is normal in course and caliber. Adenopathy: None. Pelvic viscera: The bladder, and pelvic viscera are unremarkable. Skeletal structures: No destructive osseous lesions are seen. IMPRESSION: 1. Mildly dilated fluid-filled small bowel loops with a small bowel feces sign. The terminal ileum is of normal caliber. The findings are consistent with an early or low-grade partial small bowel obstruction. There is no pneumatosis. There is no portal venous gas.
--- NOTE | 2019-07-24 19:27 | Communication Note ---
Date of Service: July 24, 2019 seen in f/u from early AM admission. in room at least 45mins possibly 60 (uncertain of exact time in ~6484-5423 range but not out of room until 1130) ans wering questions, explaining SBO, reviewing CT images with pt, explaining the difference between constipation and SBO, explaining possible significance of "area of inflammation seen before" as it would relate to current small bowel obstruction and possible diagnostic approaches (watchful waiting, capsule endoscopy, push enteroscopy.) had BM, feeling reasonable SBO - continue NG for now. probably reasonable for capsule as outpt in near future. otherwise as above again ~45-60mins in the room face to face
--- NOTE | 2019-07-24 19:32 | Billing Data ---
Date of Service July 24, 2019 Coding Level of Care Code 65062 Prolonged Care (int'l)
[2019-07-25] MEDS: ACETAMINOPHEN 1,000 MG/100 ML VIAL IV PRN ×2 (00:17→08:36)
[2019-07-25] MEDS: SODIUM CHLORIDE 0.45 % 1,000 ML IV SCH ×2 (05:14→13:35)
[2019-07-25 06:34] LABS: BUN Creatinine Ratio 16.1 (10-20); Calcium 7.9 mg/dl (8.5-10.1); Creatinine Clr Calc Pharmacy 120.5 ml/min; Est GFR (African American) 107.5; Est GFR (Non-African American) 92.7; Potassium 3.6 mmol/L (3.5-5.1)
--- NOTE | 2019-07-25 10:09 | Surgery Progress Note ---
Date of Service July 25, 2019 Assessment & Plan (1) SBO (small bowel obstruction): Small bowel is clinically resolved Can discontinue NG tube Start clear liquids Can be reevaluated this afternoon and if tolerates consider discharge Subjective Feels much better today Denies abdominal pain Passing flatus Had bowel movements yesterday Physical Exam Gastrointestinal (Abdomen): Inspection/Auscultation: normal bowel sounds; abdomen not distended Percussion/Palpation: abdomen soft; abdomen nontender Results & Data Vital Signs (Past 12 Hours) Vital Signs Temp Pulse Resp BP Pulse Ox 07/25/19 07:08 36.6 C 56 L 18 156/85 H 94 07/24/19 23:19 36.7 C 63 16 147/90 H 95
--- NOTE | 2019-07-25 19:24 | Discharge Summary ---
Date of Service July 25, 2019 Admission HPI Per Admitting Provider Pawel is a 64-year-old male with a past medical history of anemia, small bowel obstruction, dyslipidemia, hypertension, IBS, paroxysmal A. fib/paroxysmal SVT, rosacea, obstructive sleep apnea, and no history of prior abdominal surgery who presents with 1 day of abdominal pain and distention suspicious for small bowel obstruction. Patient reports that he has had 2 episodes of small bowel obstruction in the past. Starting last October he started taking MiraLAX daily to twice daily and typically has soft stools without melena or blood once to twice per day. His last bowel movement was yesterday at around 7:30 PM. Yesterday around 7 PM he was going to a pizza shop when his stomach started to feel "funny ". He knows that food increased nausea and abdominal distention. He felt like this was similar to his small bowel obstructions in the past. He continued to be nauseous but did not have any episodes of vomiting. He developed abdominal distention and left abdominal pain with constipation. He denies other symptoms. He has not vomited. He reports that his stools are normally very skinny and sometimes flat "like [place]". He reports that he had a colonoscopy with Valerie last October at [facility]. He reports that at that time he was told there was an area of slight concern, but does not know further details. He was recommended for 3-year colonoscopy follow-up. He has had a colonoscopy and EGD neither of which showed evidence of Crohn's, but which he has a strong family history for and was recommended to have continued follow-up. Medications: Reviewed in EMR Medical history: Reviewed in EMR Surgical history: Reviewed in EMR, of note no abdominal surgery. Family history: History of ulcerative colitis in his sister, spastic colon in his brother, and Crohn's disease in a maternal cousin. Allergies: Reviewed in EMR Social: He lives at home with his who would be his surrogate decision maker. He does not drink alcohol, was a former light smoker 40 years ago, does not use recreational drugs. CODE STATUS: Full code Principal Diagnosis recurrent SBO Discharge Exam gen pleasant nad heent nc at mmm breathing unlabored no accessory muscles good effort skin no rashes no pallor or icterus Discharge Data Allergies Allergy/AdvReac Type Severity Reaction Status Date / Time atorvastatin Allergy Myalgia Verified 03/11/19 15:06 pravastatin Allergy Verified 03/11/19 15:06 simvastatin Allergy Verified 03/11/19 15:06 Consultations 07/24/19 04:27 ED Decision to Admit Stat 07/24/19 06:59 Consult General Surgery Routine Ordered Studies 07/24/19 CT abd pelvis IV con only Urgent Hospital Course (1) SBO (small bowel obstruction): NG out, ate well, stable for home adhesional vs inflammatory - nothing that appears mass related -since prior inflammatory findings - capsule endoscopy reasonable -ongonig outpt f/u -see instructions to pt as well Total Time Total Time Spent Total Time Spent (In Minutes): >30 Discharge Plan Discharge Items Patient Disposition: Home - Self-Care Reason For Visit: SBO Discharge Diagnosis: small bowel obstruction Activity: Resume your previous activity Non-emergency contact: Primary Care Provider and Parts Salesman Call non-emergency contact if: your symptoms worsen Follow-up/Referrals: Di Jackman DO [Primary Care Provider] - Diet: Low Fiber Addtl Attending Provider Instructions: small bowel obstruction -this usually is a temporary kink in the small intestine - most frequently due to some scar tissue in the abdomen. as the small intestine wiggles through your abdominal cavity it can get kinked around the band of scar tissue, but since the intestines continue to contract every few minutes, usually it wiggles its way free. -fortunately you improved quite quickly and are definitely safe to get home -as we discussed, what is odd in your situation is that you've never had an abdominal surgery to create a clear answer for scar tissue, and you've had the scope that showed a small area of inflammation that raises suspicion on whether or not there could be an area of inflammation causing the obstructions. this, combined with the fact that you've had several in the last few years makes chasing this further worthwhile ---> as we discussed, pursuing concerns of scar tissue further would likely entail a laparoscopic surgery. the main problem with pursuing this avenue is that surgeries do tend to leave behind scar tissue - so surgeons are quite hesistant to do a surgery to potentially break down scar tissue when they might leave just as much or more behind. this becomes something to miller if, after further workup as outlined below, there is no sign of inflammation causing this and you continue to have small bowel obstruction episodes. --->pursuing concerns on inflammation does have some plausibility - since you had the area that looked inflammed on scope before, it is possible that an area of small bowel inflammation could be culprit for the repeated obstructions. there are two fairly reliable ways to investigate the small bowel -- capsule endoscopy (camera pill) or push enteroscopy (or double-balloon enteroscopy) -the upside of the capsule endoscopy is that it's really not at all invasive. it gets pretty good detail of the small bowel by taking a lot of pictures as the pill goes through your intestines. the downside is that it is a series of snapshots, so it's not quite as comprehensive of a view as a full scope would be -the upside of a double balloon scope is that it basically is as much detail as a bridge carpenter would see on an EGD or colonoscopy - but of the small bowel. the downside is that it is more invasive than the capsule (although still only at the level of how a scope is invasive, so not majorly invasive) and sometimes depending on the twists and turns of the small bowel the bridge carpenter is able to get further than other times - possibly leaving a concern of a "blind spot" if they're not able to get deeply through --i would think for a good next step, the capsule endoscopy would make sense; if it is inconclusive or things need to be looked at further, then you could discuss double balloon enteroscopy as a further step down the road ---the other thing to keep in mind is that while you have been having a bad run of bowel obstructions recently, a lot of people do have a run of obstruction episodes and then things quiet down for years after that; so there is hope that things may settle down on their own - i would still want you to pursue things further but i don't want you to feel discouraged. for the next few weeks eat a low fiber diet - simply because that will go down the easiest, and be the easiest to digest and absorb. however, as we discussed, remember that what you eat generally is not a cause for bowel obstructions. once you're feeling back to normal, it will be OK (and encouraged) to get more into eating fruits and vegetables for the usp. for your constipation, as we discussed yesterday, it's OK to use miralax to keep things moving. however, remember that constipation and bowel obstructions are different things. for constipation, you can use several doses in a day if you need to --> the "basic dose" of one capful is a lower end of dosing. by contrast, a bowel prep for a colonoscopy would be as much as about 12 doses in rapid succession. most people do well with regular constipation with a range of 1-3 doses a day. usually the closer you stack the doses, the more quickly it will work, but also the more cramping it will cause. when the doses are more spread out, then it acts more like a potent stool softener. Pending Studies at Discharge: No Stand-Alone Forms: My [facility] dax [place], Smoking Cessation Medications and DC Order Prescriptions: Continued lisinopril 40 mg tablet 40 mg PO DAILY Qty: 90 RF: 3 Eliquis 5 mg tablet 5 mg PO BID Qty: 180 RF: 3 fluoxetine [Prozac] 20 mg capsule 30 mg PO DAILY RF: 0 rosuvastatin [Crestor] 5 mg tablet 5 mg PO [id number] RF: 0 sildenafil [Viagra] 100 mg tablet 100 mg PO DAILY PRN (Reason: sexual activity) Qty: 10 RF: 0 flecainide 100 mg Tablet 100 mg PO Q12H RF: 0 acetaminophen [Tylenol Extra Strength] 500 mg Tablet 500 mg PO Q6H PRN (Reason: Pain, Moderate) RF: 0 omega-3 acid ethyl esters 1 gram capsule 2 cap PO DAILY RF: 0 Discharge Orders: Discharge Order (Routine); Ordered 07/25/19 Ordered By: Elbert Baig Admission Data Admit Date/Time: 07/24/19 05:33 Attending Provider: Elbert Baig Admit Provider: Bairon Olea Primary Care Provider: Di Jackman Other Providers: Olman Woods ; Lalo Jones Other Interventions: Discharge Summary Assessment (RN) Last Done: 07/25/19 16:30 DC Date/Time DO NOT enter until pt leaves facility: 07/25/19 17:24 Coding Level of Care Code D/C Day Management >30 mins Diagnoses SBO (small bowel obstruction) K56.609
--- NOTE | 2019-07-26 04:16 | Billing Data ---
Date of Service July 26, 2019 Coding Level of Care Code 02439 Initial Inpt Care Lvl 2
== END 2019-07-25 17:24 | disposition home or self-care (01) ==
LOC: ED 01:19 → INTOOBSV 05:33 → 2W 05:33 → SUATTDRO 05:33 → 2W 05:57